=== PATIENT | male | born 1945 | race Hispanic/Latino ===

== ENCOUNTER 2018-01-12 09:50 | Day surgery (SDC) | payer MEDICARE, OTHER ==
[~2018-01-12] VITALS: Ht 175.3 cm; Wt 73.5 kg
[~2018-01-12 09:50] MED LIST: ASPIR-LOW81 MG PO; KLOR-CON M2020 MEQ PO; LIPITOR20 MG PO; METOPROLOL TART50 MG PO; OMEPRAZOLE20 MG PO; TORSEMIDE5 MG PO; VITAMIN D50000 UNI1 PO; ZESTRIL2.5 MG PO
--- NOTE | 2018-01-13 14:33 | OR ---
[facility] [place] [facility] [address] [facility], [place] [address] Signed DATE OF OPERATION: 01/12/2018 SURGEON: Tejal Lowe MD PREOPERATIVE DIAGNOSIS: Colon screening. POSTOPERATIVE DIAGNOSIS: Normal colon screening to cecum. PROCEDURE: Total colonoscopy to cecum. ANESTHESIA: Intravenous sedation, fentanyl 100 mcg and Versed 4 mg. INDICATION: This 72-year-old man is a patient of Dr. Delgado. He underwent colonoscopy in 2010, which was normal. He is here for surveillance colonoscopy. He has no family history of colon cancer and is symptom-free. He understands the risks of bleeding, infection, and perforation related to colonoscopy and wished to proceed. FINDINGS: The prep was excellent. Complete colonoscopy was undertaken of the cecum without question. There was no sign of polyps, diverticular formation, colitis, or cancer. DESCRIPTION OF PROCEDURE: The patient was brought to the endoscopy suite and placed in lateral decubitus position, given intravenous sedation to the point of slurred speech and nystagmus. Digital rectal examination was normal. The Olympus video colonoscope was passed in the rectum and manipulated throughout the colon ultimately intubating the cecum itself. The ileocecal valve was normal. Scope was withdrawn from that point. Examination throughout showed no sign of abnormality specifically no polyps, diverticular formation, colitis, or cancer. Retroflex view of the rectum was normal as well. The scope was removed. The patient was taken to recovery room in good condition. CONCLUDING DIAGNOSIS: Normal colon. Electronically Signed By: TEJAL LOWE MD 01/13/18 1433 PATIENT NAME: RADHA DEL ANGEL JR OPERATIVE REPORT DATE OF : 47 REPORT #: [id number] PHYSICIAN: TEJAL LOWE MD PCP: INGA DELGADO DO REPORT IS CONFIDENTIAL AND NOT TO BE RELEASED WITHOUT AUTHORIZATION [address] [place], [place] [address] Signed PLAN: Repeat colonoscopy in 10 years if clinically indicated at advanced age of 82 years. MD JOHN Funez/EBONI /[id number] cc: Dr. Delgado Copies: ~ Electronically Signed By: TEJAL LOWE MD 01/13/18 1433 PATIENT NAME: RADHA DEL ANGEL JR OPERATIVE REPORT DATE OF : 47 REPORT #: [id number] PHYSICIAN: TEJAL LOWE MD PCP: INGA DELGADO DO REPORT IS CONFIDENTIAL AND NOT TO BE RELEASED WITHOUT AUTHORIZATION
== END 2018-01-12 11:36 | disposition home or self-care (01) ==
LOC: OPS 09:50 → DS 09:50 → OPS 11:36 → DS 12:00
PROVIDERS: Surgery
PROC: 0DJD8ZZ Inspection of Lower Intestinal Tract, Via Natural or Artificial Opening Endoscopic (ICD-10-PCS; principal; 2018-01-12 12:00)
DX: Z12.11 Encounter for screening for malignant neoplasm of colon (principal); E78.5 Hyperlipidemia, unspecified; I10 Essential (primary) hypertension; I25.10 Atherosclerotic heart disease of native coronary artery without angina pectoris; L72.0 Epidermal cyst; Z87.442 Personal history of urinary calculi
CPT/HCPCS: G0121; 99153; G0500; J2250; J3010; J7120

== ENCOUNTER 2020-05-03 19:11 | Emergency (ER) | payer MEDICARE, OTHER ==
[~2020-05-03] VITALS: Ht 175.3 cm; Wt 76.2 kg
[~2020-05-03 19:11] MED LIST changes: +IBUPROFEN600 MG PO; +MAPAP325 MG PO; +OXYCODON-ACETA1 EAC2 PO
[2020-05-03] MEDS ORDERED: NORVASC2.5 MG PO (19:49)
[2020-05-03] MEDS ORDERED: ALDACTONE25 MG PO (19:49)
[2020-05-03] MEDS ORDERED: MAGNESIUM30 MG PO (19:50)
[2020-05-03] MEDS ORDERED: MAG-TAB SR84 MG PO (19:52)
[2020-05-03] MEDS ORDERED: CARVEDILOL25 MG PO (19:53)
[2020-05-03] MEDS ORDERED: ZESTRIL40 MG PO (19:53)
[2020-05-04] MEDS ORDERED: AUGMENTIN 875-1 EACH PO (00:20)
--- NOTE | 2020-05-04 17:10 | EKG ---
[facility] [address] [facility] [place] [address] Signed Sinus bradycardia with marked sinus arrhythmia Minimal voltage criteria for LVH, may be normal variant Inferior infarct (cited on or before 09-JAN-2018) Abnormal ECG When compared with ECG of 09-JAN-2018 11:13, T wave inversion less evident in Inferior leads Confirmed by ADEBAYO PASCUAL DO ([id number]) on 05/04/2020 5:10:02 PM Electronically Signed By: ADEBAYO PASCUAL DO 05/04/20 1710 PATIENT NAME: RADHA DEL ANGEL Electrocardiogram DATE OF : 47 PHYSICIAN: ADEBAYO PASCUAL DO REPORT #: [id number] REPORT IS CONFIDENTIAL AND NOT TO BE RELEASED WITHOUT AUTHORIZATION
== END 2020-05-04 00:30 | disposition home or self-care (01) ==
LOC: ED 19:11
DX: K57.32 Diverticulitis of large intestine without perforation or abscess without bleeding (principal); N32.9 Bladder disorder, unspecified; R07.9 Chest pain, unspecified; I10 Essential (primary) hypertension; Z87.891 Personal history of nicotine dependence; Z91.011 Allergy to milk products; Z79.899 Other long term (current) drug therapy; Z79.82 Long term (current) use of aspirin
CPT/HCPCS: 74177; 80053; 81001; 84484; 85025; 93005; 93010; 99285-25; J2270; J2405; J2543; J7040; Q9967

== ENCOUNTER 2020-09-28 05:30 | Day surgery (SDC) | payer MEDICARE, OTHER ==
[~2020-09-28] VITALS: Ht 175.3 cm; Wt 73.6 kg
[~2020-09-28 05:30] MED LIST changes: +ALDACTONE25 MG PO; +AUGMENTIN 875-1 EACH PO; +CARVEDILOL25 MG PO; +FLOMAX0.4 MG PO; +MAG6464 MG PO; +MAGNESIUM30 MG PO; +NORVASC2.5 MG PO; +ZESTRIL40 MG PO
[2020-09-28] MEDS ORDERED: TYLENOL EXTRA500 MG PO (05:57)
[2020-09-29] MEDS ORDERED: AMLODIPINE BESYL5 MG PO (08:32)
[2020-09-29] MEDS ORDERED: TAMSULOSIN HCL0.4 MG PO (08:41)
[2020-09-29] MEDS ORDERED: OFLOXACIN5 M1 OD (09:00)
[2020-09-29] MEDS ORDERED: CIPRO500 MG PO (10:41)
[2020-09-29] MEDS ORDERED: OXYCODONE HCL5 M1 PO (10:41)
--- NOTE | 2020-09-29 16:51 | PATH ---
[facility] [address] [place], [place] [address] Signed SPECIMEN(S): A PROSTATE CHIPS SPECIMEN SOURCE: A. PROSTATE CHIPS CLINICAL HISTORY: Pre: BPH with LUTS. Posterior: TURP. FINAL PATHOLOGIC DIAGNOSIS: Prostate chips, transurethral resection: - Nodular prostatic hyperplasia. NAL:vlg:KESHAVR MICROSCOPIC EXAMINATION: A Tri-CAP multi-plex stain (with appropriate staining controls) is performed on a employee's representative section and confirms a focus of adenosis, with patchy basal cells with p63 and HMWCK and very faint, rare P504S epithelial positivity. GROSS DESCRIPTION: The specimen, labeled "FY," and designated on the requisition "prostate chips," is received in formalin and consists of multiple fragments of pink-king, soft and rubbery tissue (7 gram, 5.5 x 4.0 x 1.5 cm in aggregate). The specimen is submitted entirely in cassettes (A1-A5). AC (under the direct supervision of a pathologist) The Gross Description was prepared using a voice recognition system. The report was reviewed for accuracy; however, sound-alike word errors, addition and/or deletions may occur. If there is any question about this report, please contact Client Services. ADDITIONAL NOTES: Immunohistochemical and/or in situ hybridization studies were performed on this case with the appropriate positive controls that react as expected. This test was developed and its performance characteristics determined by [facility]. It has not been cleared or approved by the U.S. Food and Drug Administration. The FDA has determined that such clearance or approval is not necessary. This test is used for clinical purposes. It should not be regarded as investigational or for research. [facility] is certified under the Clinical Laboratory Improvement Amendments of 1988 (CLIA) as qualified to perform high complexity clinical PATIENT NAME: RADHA DEL ANGEL JR PATHOLOGY DATE OF : 47 REPORT #: [id number] PHYSICIAN: SAMARA PATHOLOGY PCP: LUCINDA GUTIÉRREZ MD REPORT IS CONFIDENTIAL AND NOT TO BE RELEASED WITHOUT AUTHORIZATION [facility] [address] [place], [place] [address] Signed laboratory testing. This assay has not been validated for specimens that have been decalcified. PERFORMING LABORATORY: The technical component was performed by [facility], [address] [place] [id number] (Stereotyper Helper: Sparkle Hawk MD; CLIA# [id number]). Professional interpretation was performed by [employer] [facility], [address] [address] (CLIA# [id number]). Diagnostician: Mariel Marion MD Pathologist Electronically Signed 09/29/2020 Copies: ~ PATIENT NAME: RADHA DEL ANGEL PATHOLOGY DATE OF : 47 REPORT #: [id number] PHYSICIAN: SAMARA PATHOLOGY PCP: LUCINDA GUTIÉRREZ MD REPORT IS CONFIDENTIAL AND NOT TO BE RELEASED WITHOUT AUTHORIZATION
--- NOTE | 2020-10-01 14:19 | OR ---
[facility] [address] [place], [place] [address] Signed DATE OF OPERATION: 09/28/2020 SURGEON: Earl Sheppard MD PREOPERATIVE DIAGNOSES: 1. 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 2. Regrowth of prostate tissue, status post transurethral resection of the prostate. 3. Benign prostatic hyperplasia with lower urinary tract symptoms. POSTOPERATIVE DIAGNOSES: 1. 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 2. Regrowth of prostate tissue, status post transurethral resection of the prostate. 3. Benign prostatic hyperplasia with lower urinary tract symptoms. NAMES OF PROCEDURES: 1. Diagnostic cystourethroscopy. 2. Urethral dilation using Radha dilators from 10-Nicaraguan to 20-Nicaraguan. 3. Transurethral resection of prostate. ANESTHESIA: General. ESTIMATED BLOOD LOSS: 25 mL. COMPLICATIONS: None. SPECIMENS: 1. Bladder stone sent to the lab for stone analysis. 2. Prostate chips sent to the pathology for evaluation. DRAINS: A 22-Nicaraguan three-way Gillette catheter, connected to continuous bladder irrigation. INDICATIONS FOR PROCEDURE: Mitzi is a very pleasant 75-year-old gentleman with a longstanding history of benign prostatic hyperplasia with lower urinary tract symptoms. He is well known to me and has been experiencing a weak force of stream for a while now, despite having undergone transurethral resection of the prostate in the past. He recently underwent Electronically Signed By: EARL SHEPPARD MD 10/01/20 1419 PATIENT NAME: DEL ANGELRADHA RUGGIERO JR OPERATIVE REPORT DATE OF : 47 REPORT #: [id number] PHYSICIAN: EARL SHEPPARD MD PCP: LUCINDA GUTIÉRREZ MD REPORT IS CONFIDENTIAL AND NOT TO BE RELEASED WITHOUT AUTHORIZATION [facility] [address] [place], [place] [address] Signed cystoscopy, which did reveal a short however dense stricture located in the proximal portion of the pendulous urethra. This required dilation before he underwent a formal diagnostic cystoscopy. Once in the bladder, I was able to appreciate significant regrowth of his prostate. I was able to visualize very large bulbs of adenomatous tissue present within and otherwise patent TUR defect. After discussion of the risks and benefits, the patient elected to undergo repeat TURP. He does understand that his stricture will require repeat dilation prior to resection of the prostate. OPERATIVE FINDINGS: 1. Ureteroscopy reveals a high caliber yet short stricture present within the pendulous urethra. This stricture was dilated using Radha dilators from 10-Nicaraguan to 20-Nicaraguan without difficulty. The stricture does not at this time seem to be of any significant length as the dilation was performed without difficulty. 2. Diagnostic cystoscopy reveals no evidence of any suspicious masses or lesions. There is a small 3 mm stone present within the bladder. The stone was extracted and sent to the lab for stone analysis. Otherwise, there were no bladder lesions. Bilateral ureteral orifices are in their normal anatomic location. 3. Ureteroscopy reveals a fairly wide open TUR defect that is patent up to the level of the verumontanum. However, there are three large bulbous collections of tissue. These appeared to ball-valving his TUR defect. These well-circumscribed areas of tissue were resected using a 24-Nicaraguan bipolar loop without difficulty. 4. At the end of the procedure, a 22-Nicaraguan three-way Gillette catheter was inserted into the patient's bladder and connected to continuous bladder irrigation. DESCRIPTION OF PROCEDURE: After informed consent was obtained, the patient was taken back to the operating room. He was transferred from the [facility] to the operating room table, where general anesthesia was induced. He was placed in dorsal lithotomy position. His genitalia prepped and draped in a standard sterile fashion. Urethroscopy was performed using a 30-degree lens. His pendulous stricture was immediately noted and I was able to easily pass a Sensor wire through the stricture into the patient's bladder. Over the wire, I dilated the pendulous urethral stricture from 10-Nicaraguan to 20-Nicaraguan without difficulty. Once dilation was complete, I was able to pass a cystoscope into the patient's bladder using a 22-Nicaraguan sheath. A thorough diagnostic cystoscopy was performed. The cystoscope was then removed. The patient's fossa navicularis was dilated from 18-Nicaraguan to 28-Nicaraguan without difficulty. I also injected 60 mL of lube into the patient's urethra prior to placing the 26-Nicaraguan sheath. The 26-Nicaraguan sheath was placed into the patient's urethra without any significant difficulty using the visual obturator. The visual obturator was then removed and replaced with a resectoscope. The bulbous tissue present within the patient's prostatic urethra was then resected using a 24-Nicaraguan loop with bipolar electrocautery. The resection was performed without any difficulty and all three areas of tissue were successfully removed. Hemostasis was achieved using the Electronically Signed By: EARL SHEPPARD MD 10/01/20 1419 PATIENT NAME: RADHA DEL ANGEL JR OPERATIVE REPORT DATE OF : 47 REPORT #: [id number] PHYSICIAN: EARL SHEPPARD MD PCP: LUCINDA GUTIÉRREZ MD REPORT IS CONFIDENTIAL AND NOT TO BE RELEASED WITHOUT AUTHORIZATION [address] [place], [place] [address] Signed bipolar loop. The patient's bladder was thoroughly irrigated of prostate chips using a Marcello syringe. Repeat cystoscopy revealed that both the small bladder stone and all the prostate chips had been successfully extracted from the patient's bladder. Once I was satisfied that the TUR defect had been completely cleared of any residual adenoma, I removed the resectoscope and inserted a 22-Nicaraguan three-way Gillette catheter into the patient's bladder without difficulty. A 30 mL of water was placed into the Gillette balloon. The Gillette catheter was then manually irrigated. The procedure was then terminated. I then performed a digital rectal examination which revealed no evidence of masses, however, did reveal a rather diffusely enlarged prostate gland measuring approximately 70 g. The procedure was then terminated. The patient tolerated the procedure well without any complication. He will now be transferred to the postanesthesia care unit in stable condition. DISPOSITION: I will discuss the details of today's procedure later today when I see the patient this evening. The plan is for him to be discharged to home tomorrow morning once he is completely weaned off his continuous bladder irrigation. I anticipate that this will happen quite easily. He will be sent home with Cipro 500 mg p.o. b.i.d. for a total of 7 days, along with oxycodone 5 mg one tablet p.o. q.6-8 hours p.r.n. pain dispensed #15. He will be scheduled to return to clinic in 3 days to undergo a voiding trial. MD ALEX Tena/EBONI /[id number] Copies: ~ Electronically Signed By: EARL SHEPPARD MD 10/01/20 1419 PATIENT NAME: RADHA DEL ANGEL OPERATIVE REPORT DATE OF : 47 REPORT #: [id number] PHYSICIAN: EARL SHEPPARD MD PCP: LUCINDA GUTIÉRREZ MD REPORT IS CONFIDENTIAL AND NOT TO BE RELEASED WITHOUT AUTHORIZATION
== END 2020-09-29 12:30 | disposition home or self-care (01) ==
LOC: DS 05:30 → MS 09:55 → DS 09-29 12:30
PROVIDERS: ATTEND Urology
PROC: 0VB08ZZ Excision of Prostate, Via Natural or Artificial Opening Endoscopic (ICD-10-PCS; principal; 2020-09-28 06:45)
DX: N40.1 Benign prostatic hyperplasia with lower urinary tract symptoms (principal); N99.111 Postprocedural bulbous urethral stricture, male; N13.8 Other obstructive and reflux uropathy; N21.0 Calculus in bladder; I25.10 Atherosclerotic heart disease of native coronary artery without angina pectoris; I25.82 Chronic total occlusion of coronary artery; Z20.822 Contact with and (suspected) exposure to COVID-19; I10 Essential (primary) hypertension; E78.5 Hyperlipidemia, unspecified; Z79.82 Long term (current) use of aspirin; Z87.891 Personal history of nicotine dependence; Z95.5 Presence of coronary angioplasty implant and graft
CPT/HCPCS: 00914; 88305; 88344; C1769; J0690; J0696; J1160; J2704; J3010; J7121; U0003

== ENCOUNTER 2023-03-23 13:57 | Inpatient (IN) | payer MEDICARE, OTHER ==
[~2023-03-23] VITALS: Ht 175.3 cm; Wt 70.8 kg
[~2023-03-23 13:57] MED LIST changes: +AMLODIPINE BESYL5 MG PO; +CIPRO500 MG PO; +OFLOXACIN5 M1 OD; +OXYCODONE HCL5 M1 PO; +TAMSULOSIN HCL0.4 MG PO; +TYLENOL EXTRA500 MG PO
[2023-03-23 16:11] LABS: BASOPHILS 0.8 % (0-2); EOSINOPHILS 0.3 % (0-6); HEMATOCRIT 38.9 % (35.0-50.0); HEMOGLOBIN 12.9 g/dL (12.0-18.0); MCH 30.3 (27-36); MCHC 33.1 g/dl (30-36); MCV 91.4 fl (81-99); MONOCYTES 10.8 % (0-12); NEUTROPHILS 71.1 % (39-80); PLATELET COUNT 216 K/uL (140-440); RBC 4.26 M/ul (4.3-5.7); RDW 13.5 (10.5-15.0)
[2023-03-23 16:21] LABS: ALBUMIN/GLOBULIN RATIO 1.14 (1.1-2.4); ANION GAP 13.3 (7-21); BILIRUBIN, TOTAL 0.7 ng/dL (0.2-1.0); BUN/CREATININE RATIO 19.14 (6.0-28.6); CALCIUM 9.3 mg/dL (8.5-10.1); CREATININE, SERUM 0.94 mg/dL (0.70-1.30); POTASSIUM 3.3 mmol/L (3.5-5.1); PROTEIN, TOTAL 7.5 g/dL (6.4-8.2)
--- NOTE | 2023-03-23 17:25 | NUR ---
recieved report from nurse kaur. pt was ambulated from er and transferred with assistance into the [facility] bed.
[2023-03-23 17:30] VITALS: BP 143/79
--- NOTE | 2023-03-23 18:30 | NUR ---
pt vitals and assessments complete. pt is A+O. ICEPACK APPLIED TO LEFT ANKLE PER DR ORDERS. INCENTIVE SPIROMETER USE STARTED PER DR ORDERS, PT LEG ELEVATED. PT AWARE OF SURGERY TOMORROW. NPO AT MIDNIGHT. PT REQUESTED GINGERALE. NO OTHER CARES NEEDED OR REQUESTED AT THIS TIME CALL LIGHT WITHIN REACH
--- NOTE | 2023-03-23 19:05 | NUR ---
REPORT RECIEVED FROM REGINE WEBB. BOARD UPDATED. pt RESTING IN THE BED. LLE ELEVATED. pt DENIES ANY NEEDS AT THIS TIME.
--- NOTE | 2023-03-23 21:00 | NUR ---
pt REQUESTED TO USE THE BR. THIS RN SUGGESTED THE pt BE PLACED ON THE BED PRASAD. pt AGREED TO TRY BUT THOUGHT HE MIGHT NOT BE ABLE TO GO. pt ROLLED FROM SIDE TO SIDE WITH MINIMAL PAIN IN LLE. pt COVERED AND GIVEN CALL LIGHT FOR WHEN HE WAS FINISHED.
[2023-03-23 21:52] VITALS: BP 145/60
--- NOTE | 2023-03-23 22:00 | NUR ---
pt TAKENT OFF BED PRASAD AT 2119. ASSESSMENT AND VITAL SIGNS DONE. pt BOOT REMOVED AND HEEL PROTECTORS PLACED ON pt. ICE PACK PLACED ON LLE. pt C/O 05/13 PAIN. PRN PAIN MEDICATION ADMINISTERED, SEE MAY. LLE ELEVATED ON TWO PILLOWS. LLE, CMS INTACT, PEDAL PULSES FAINT AND THREADY. L ANCKLE AND FOOT 1+ EDEMA, WARM TO TOUCH, PURPLE IN COLOR. pt DENIES ANY OTHER NEEDS AT THIS TIME.
[2023-03-24] VITALS (8 sets, daily range): BP systolic 114–152; BP diastolic 65–78
--- NOTE | 2023-03-24 00:40 | NUR ---
pt RESTING IN BED. ICE PACK REMOVED. LLE STILL ELEVATED ON TWO PILLOWS. HEEL PROTECTORS ON. WATER TAKEN AWAY. pt DENIES PAIN AT THIS TIME. CALL LIGHT WITHIN REACH.
--- NOTE | 2023-03-24 02:05 | NUR ---
assessment done. LLE elevated on two pillows. vital signs and I&O's done. pt denies any pain at this time. heel protectors on. Ice pack placed on LLE. pt denies any needs at this time. call light within reach.
--- NOTE | 2023-03-24 02:39 | NUR ---
ICE PACE REMOVED. WARM BLANKET PROVIDED. BLANKETS ADJUSTED. CALL LIGHT WITHIN REACH. pt SONG Bills THIS TIME.
--- NOTE | 2023-03-24 05:00 | NUR ---
THIS RN AND SHIRIN RN WENT IN FOR ROUNDING AND REPOSITIONING OF THE pt. FOOT CRADEL PLACED ON END OF BED TO KEEP BLANKETS OFF FOOT. ICE PLACED ON FOOT. WARM BLANKET PROVIDED. pt COMPLAINS OF 4/10 PAIN. PRN PAIN MEDICATION RE-ORDERED ON THE MAY WILL ADMINISTER WHEN VERIFIED. pt STATES HE IS COMFORTABLE AT THIS TIME. LLE ELEVATED. HEEL PROTECTORS ON. pt DENIES ANY OTHER NEEDS AT THIS TIME. CALL LIGHT WITHIN REACH.
--- NOTE | 2023-03-24 06:02 | NUR ---
pt C/O 07/13 PAIN. PRN PAIN MEDICATION ADMINISTERED. SIP OF WATER ONLY. PRE SUGERY WIPE DOWN DONE. pt DENIES ANY OTHER NEEDS AT THIS TIME. CALL LIGHT WITHIN REACH.
--- NOTE | 2023-03-24 06:15 | NUR ---
UPDATED ABOUT pt FLUIDS AND PRN PAIN MEDICATIONS. TELEPHONE ORDERS RECIEVED FOR IVF AND PRN PAIN MEDICATION.
--- NOTE | 2023-03-24 08:45 | NUR ---
Patient awake in bed, no acute distress, a&ox4. Patient reports tolerable pain at this time. LLE has large medix heel protector in place, pillows in use for elvation. Right foot has small heel protector in place. CMS intact. Fracture boot noted on side table. Per report, patient is ready for surgery.
--- NOTE | 2023-03-24 08:55 | NUR ---
Surgery dept called, they will be here shortly to get patient.
--- NOTE | 2023-03-24 11:01 | NUR ---
03/24/23 1101 [place] 1011 PT ARRIVED TO PACU ON RA AND RESP EVEN AND UNLABORED. PT ASLEEP AND VSS. LEFT LEG PLACED ON PILLOWS FOR ELEVATION. PT SITTING IN HIGH FOLWERS. 1031 PT WOKE TO TACTILE STIMULI AND REORIENTED TO PACU. PT DENIES PAIN AND NAUSEA. PT REPORTS "SOME" DECREASED FEELING IN LEFT FOOT AND EDUCATION GIVEN ON BLOCK. PLAN OF CARE DISCUSSED. 1040 PT READY FOR TRANSFER. PT CONTINUES TO DENY CONCERNS. 1045 PT RETURNED TO ROOM 119 AND REPORT GIVEN TO GRANULATING MACHINE OPERATOR AND MED-SURG CHARGE. BED PLUGGED IN AND CALL LIGHT WITHIN REACH. PT DAUGHTER AT BEDSIDE. HEEL PROTECTION DISCUSSED IN REPORT. ALL QUESTIONS ANSWERED.
--- NOTE | 2023-03-24 11:15 | NUR ---
Patient back from surgery, a&ox4, no acute distress. External fixator in place to LLE. LLE elvated on pillows, heel does not touch pillow. Gauze dressing cdi to LLE, cms intact. Bed alarm in place. IV patent, fluids infusing per provider order. Vital signs are stable. Personal supplies and call light within reach.
--- NOTE | 2023-03-24 11:49 | NUR ---
UR Review: [facility] review 03/24/2023 - patient meets inpatient criteria - guideline: Ankle Fracture, Closed, Open Reduction, Internal Fixator (ORIF). Procedure performed in OR - Closed reduction left ankle with external fixator. Patient does not me GL day 1, exception entered for recent surgery, unable to determine if patient will meet PO guidelines and PT evaluation/ambulation for next level of care.
--- NOTE | 2023-03-24 13:09 | NUR ---
WORKING WITH PT. WILL RETURN TO ASSESS PATIENT THIS AFTERNOON.
--- NOTE | 2023-03-24 14:01 | NUR ---
Patient in bed watching tv, no distress. Patient's dressing/external fixator unchanged, cms intact, pillows remain in place. Patient denies pain at this time to LLE. No current needs, personal supplies and call light within reach.
--- NOTE | 2023-03-24 14:06 | NUR ---
PATIENT ALERT AND ORIENTED UP IN BED, DAUGHTER AT BEDSIDE. DEMOGRAPHICS VERIFIED WITH PATIENT. STATES HE LIVES IN DOUBLE [place]IDE [place], 5 STEPS TO GET IN AND ONE SMALL STEP IN DININGROOM. LIVES ALONE. NO DME. NORMALLY DRIVES. SOME FINANCIAL BURDEN, BUT DAUGHTER HAS BEEN ASSISTING. WOULD LIKE A WALKER. DISCUSSED OUTPATIENT PT VS. SNF WITH PATIENT AND DAUGHTER. DAUGHTER AND PATIENT THINK SNF IS A GOOD IDEA TO MANAGE EXTERNAL FIXATOR AND WORK WITH PT/OT TO ENSURE SAFETY AT HOME. PREFER [facility]. CHART FAXED FOR REFERRAL TO [facility].
[2023-03-24] MEDS ORDERED: IRBESARTAN300 MG PO ×2 (15:22)
[2023-03-24] MEDS ORDERED: CARVEDILOL12.5 MG PO ×2 (15:23)
[2023-03-24] MEDS ORDERED: ATORVASTATIN CA20 MG PO ×2 (15:23)
[2023-03-24] MEDS ORDERED: SPIRONOLACTONE25 MG PO ×2 (15:24)
--- NOTE | 2023-03-24 15:45 | NUR ---
Patient awake visiting with friends. No current needs at this time. LLE unchanged, external fixation intact, gauze cdi. LLE remains elvated, cms intact. No current needs, personal supplies and call light within reach.
[2023-03-24] MEDS ORDERED: BAYER CHEWABLE81 MG PO ×2 (16:25)
[2023-03-24] MEDS ORDERED: OMEPRAZOLE20 MG PO ×2 (16:25)
[2023-03-24] MEDS ORDERED: OXYBUTYNIN CHLOR5 M1 PO ×2 (16:26)
[2023-03-24] MEDS ORDERED: NICORETTE2 M1 BUCCAL ×2 (16:27)
--- NOTE | 2023-03-24 16:35 | NUR ---
MED REC COMPLETE
--- NOTE | 2023-03-24 19:05 | NUR ---
REPORT RECIEVED FROM GOYO WEINER. pt RESTING IN THE BED. A&O X4. pt LLE ELEVATED ON 2 PILLOWS WITH HEEL FLOATING OFF BED. FOOT HALO ON END OF BED WITH BLANKET OFF OF FOOT. HEEL MEDIX ON RIGHT FOOT. LLE DRESSING CDI. ICE PACK IN PLACE. pt DENIES ANY PAIN OR NEEDS AT THIS TIME. CALL LIGHT WITHIN REACH. NO OTHER NEEDS AT THIS TIME.
--- NOTE | 2023-03-24 20:40 | NUR ---
pt RESTING IN THE BED. LLE ELEVATED ON PILLOWS. LEFT HEEL FLOATED OFF BED. IV FLUSHED. IVF INFUSING, PER ORDER, WNL. pt STATES LLE IS STILL NUMB. RLE HAS HEEL MATRIX ON. LLE DRESSING CDI. HALO STILL ON FOOT OF BED, BLANKETS ELEVATED OFF FOOT. LLE CMS INTACT. PEDAL PULSES INTACT. LLE WARM AND PINK, NO SWELLING NOTED. pt A&O X4. pt DENIES ANY OTHER NEEDS AT THIS TIME. CALL LIGHT WITHIN REACH.
--- NOTE | 2023-03-24 23:00 | NUR ---
IV ABX INFUSING, SEE MAR. pt DENIES PAIN AT THIS TIME. pt STATES HIS LLE IS STILL NUMB. LLE DRESSING CDI. HEEL FLOATING OFF BED. LLE ELEVATED ON 2 PILLOWS. RIGHT FOOT IN HEEL PROTECTOR. SCD ON RLE. pt DENIES ANY OTHER NEEDS AT THIS TIME. CALL LIGHT WITHIN REACH.
--- NOTE | 2023-03-25 00:05 | NUR ---
pt FLOATED WITH PILLOWS UNDER BOTH HIPS. PILLOWS UNDER LLE HEEL FLOATED. CPOX ON. SCD ON RIGHT LEG. HEEL PROTECTOR ON. LLE DRESSING CDI. pt DENIES PAIN AT THIS TIME. CALL LIGHT WITHIN REACH.
[2023-03-25 01:56] VITALS: BP 132/75
--- NOTE | 2023-03-25 02:05 | NUR ---
ASSESSMENT AND VITAL SIGNS DONE. pt DENIES PAIN, STATES HIS LLE IS STILL NUMB FROM THE NURVE BLOCK. LLE ELEVATED ON PILLOWS, HEEL FLOATED OFF THE BED. LLE DRESSING CDI. SCD ON RIGHT LEG. HEEL PROTECTOR ON RLE. VSS. pt A&O X4. pt DENIES ANY OTHER NEEDS AT THIS TIME. CALL LIGHT WITHIN REACH. LLE CMS INTACT. PEDAL PULSES FELT.
--- NOTE | 2023-03-25 04:15 | NUR ---
pt RESTING IN THE BED. pt LLE ELEVATED ON PILLOWS. LEFT HEEL FLOATING. CMS INTACT, PEDAL PULSES PRESENT. 1+ EDEMA ON LLE. LLE PINK AND WARM. LLE DRESSING CDI. RIGHT LLE HAS HEEL PROTECTOR AND SCD ON. pt DENIES ANY PAIN AT THIS TIME, STATE HIS LLE IS STILL NUMB. CALL LIGHT WITHIN REACH.
[2023-03-25 05:37] VITALS: BP 133/64
[2023-03-25 05:45] LABS: BASOPHILS 0.1 % (0-2); HEMATOCRIT 32.7 % (35.0-50.0); HEMOGLOBIN 10.9 g/dL (12.0-18.0); LYMPHOCYTES 10.6 % (24-44); MCH 30.1 (27-36); MCHC 33.2 g/dl (30-36); MCV 90.8 fl (81-99); MONOCYTES 8.7 % (0-12); NEUTROPHILS 80.6 % (39-80); PLATELET COUNT 175 K/uL (140-440); RDW 13.3 (10.5-15.0)
[2023-03-25 05:49] LABS: ANION GAP 11.1 (7-21); BUN/CREATININE RATIO 16.86 (6.0-28.6); CREATININE, SERUM 0.83 mg/dL (0.70-1.30); POTASSIUM 4.1 mmol/L (3.5-5.1)
--- NOTE | 2023-03-25 08:58 | NUR ---
Patient awake, alert and oriented x4. Patient denies pain to LLE. LLE remains elveated on pillows, heel not touching anything. CMS intact to LLE, external fixation in place. Gauze surrounding external fixation has small amount of sarosang drainage noted. Patient reports numbness to LLE. No current needs, personal supplies and call light within reach. Bed alarm intact.
--- NOTE | 2023-03-25 09:15 | EKG ---
[facility] [address] [facility] [place] [address] Signed Sinus rhythm with occasional premature ventricular complexes Possible Inferior infarct (cited on or before 09-JAN-2018) Abnormal ECG When compared with ECG of 03-MAY-2020 20:56, premature ventricular complexes are now present Confirmed by NADEGE OMER MD ([id number]) on 03/25/2023 9:14:50 AM Electronically Signed By: NADEGE OMER 03/25/23 0915 PATIENT NAME: GRETCHEN DEL ANGELKIERRA ESTRADA Electrocardiogram DATE OF : 47 PHYSICIAN: NADEGE OMER REPORT #: [id number] REPORT IS CONFIDENTIAL AND NOT TO BE RELEASED WITHOUT AUTHORIZATION
[2023-03-25 10:09] VITALS: BP 148/70
--- NOTE | 2023-03-25 10:28 | OR ---
[facility] [address], [place] [address] Signed DATE OF OPERATION: 03/24/2023 SURGEON: Praveen Up MD PREOPERATIVE DIAGNOSIS: Unstable left ankle fracture with significant swelling and skin compromise. POSTOPERATIVE DIAGNOSIS: Unstable left ankle fracture with significant swelling and skin compromise. PROCEDURE PERFORMED: Closed reduction and external fixation, left ankle. FIELD BROOMER: None. ANESTHESIA: General. BLOOD LOSS: Minimal. TOURNIQUET TIME: Zero. BRIEF HISTORY: Radha is a 77-year-old gentleman, who suffered a ground level fall two days ago. He walked on the ankle feeling very unstable and presented to the ER where radiographs showed a displaced unstable bimalleolar ankle fracture. Risks and benefits of operative treatment were discussed with him and he elected to proceed. DESCRIPTION OF PROCEDURE: Once consent was obtained, he was taken to the operating room. It should be noted that he came to day surgery with his fracture boot removed and his foot essentially . This created some skin issues on both medial and lateral sides where the bone fragments were pushing on the skin and created almost open fractures. He was taken to the operating room, placed on the operating room bed. After adequate anesthesia was established, the leg was prepped and draped in a standard sterile fashion. The 1st two pins were placed in the tibia on the proximal and medial side through separate stab incisions, the clamp was then attached to them. The 3rd pin was placed in the talar Electronically Signed By: PRAVEEN UP MD 03/25/23 1028 PATIENT NAME: RADHA DEL ANGEL JR OPERATIVE REPORT DATE OF : 47 REPORT #: [id number] PHYSICIAN: PRAVEEN UP MD PCP: LUCINDA GUTIÉRREZ MD REPORT IS CONFIDENTIAL AND NOT TO BE RELEASED WITHOUT AUTHORIZATION [facility] [address] [place] [id number] Signed neck and the 4th pin in the calcaneus just below where the significant skin blistering was. These pins were also attached to a clamp and two bars were placed. Fracture was then placed in a reduced position and the bars were tightened to the pin clamps. All attachments were tightened sufficiently. Final radiographs showed good reduction and alignment. The four pins were then dressed with Allevyn dressing and gauze. An Allevyn was placed on the lateral side of the ankle where the skin breakdown had occurred as well. He was then awakened, taken to the recovery room in satisfactory condition. All sponge, needle, and instrument counts were correct. Praveen Up MD BA/DOROTHYL /[id number] Copies: ~ Electronically Signed By: PRAVEEN UP MD 03/25/23 1028 PATIENT NAME: RADHA DEL ANGEL JR OPERATIVE REPORT DATE OF : 47 REPORT #: [id number] PHYSICIAN: PRAVEEN UP MD PCP: LUCINDA GUTIÉRREZ MD REPORT IS CONFIDENTIAL AND NOT TO BE RELEASED WITHOUT AUTHORIZATION
--- NOTE | 2023-03-25 11:11 | NUR ---
Dr. Up aware of bleEding surrounding external fixation sites-Verbal order received to reinforce area with gauze wrap.
[2023-03-25 13:05] VITALS: BP 140/63
--- NOTE | 2023-03-25 15:15 | NUR ---
Patient up in chair watching tv, no distress. Patient denies pain to LLE. LLE remains elvevated, dressing/external fixation unchanged, cms intact. Personal supplies and call light within reach.
--- NOTE | 2023-03-25 16:00 | NUR ---
External fixator has a small amount of new allen red bleeding noted around upper and lower instertion sites. Gauze dressing changed to upper dressing. LLE remains elevated, cms intact. Patient reports he is doing well this evening, pain is well controlled. Call light within reach.
[2023-03-25 18:50] VITALS: BP 148/72
--- NOTE | 2023-03-25 19:05 | NUR ---
REPORT RECIEVED FROM GOYO WEINER. pt RESTING IN THE BED. pt DENIES PAIN AT THIS TIME. pt BANDAGES MODERATELY SATURATED WITH BLOOD. DAY SHIFT RN STATES DR. GONZÁLES IS AWARE. LLE IS ELEVATED ON PILLOWS, HEEL FLOATED. RLE SCD ON, HEEL PROTECTOR ON. pt DENIES ANY OTHER NEEDS AT THIS TIME. CALL LIGHT WITHIN REACH.
--- NOTE | 2023-03-25 20:10 | NUR ---
IN ROOM WITH PRIMARY RN OJSEFINA TO COLLECT VS AND I&O'S. ROOM TIDIED AND pt HAS CALL LIGHT IN REACH, pt LEFT RESTING IN BED WITH PRIMARY RN IN ROOM.
[2023-03-25 20:16] VITALS: BP 128/63
--- NOTE | 2023-03-25 20:20 | NUR ---
ASSESSMENT AND VITAL SIGNS DONE. LLE DRESSING MODERATELY SATURATED. LLE ELEVATED ON PILLOW. HEEL ELEVATED. RLE SCD ON, HEEL PROTECTOR ON. IV ASSESSED, WNL. pt DENIES ANY PAIN AT THIS TIME. CALL LIGHT WITHIN REACH. SCHEDULED MEDICATION ADMINISTERED, SEE MAY.
--- NOTE | 2023-03-25 23:00 | NUR ---
KERLIX DRESSING CHANGED ON pt LLE. TWO DRAIN GAUZES PLACED AROUND MECHANISM'S BARS, WITH KERLIX WRAPPED AROUND THE PROXIMAL BARS OF THE MECHANISM AND THE pt LEG. pt TOLERATED WELL. pt STILL DENIES PAIN. DRAINAGE WILL BE MONITORED THROUGHOUT THE NIGHT. LLE ELEVATED ON PILLOWS, HEEL FLOATING. RLE SCD ON AND HEEL PROTECTOR ON. CALL LIGHT WITHIN REACH.
--- NOTE | 2023-03-25 23:30 | NUR ---
pt CALLED C/O 05/13 PAIN. PRN PAIN MEDICATION ADMNISTERED. pt STATES HE CAN FEEL HIS LEG AGAIN AND BEGAN TO MOVE IT. pt DENIES ANY OTHER NEEDS AT THIS TIME. CALL LIGHT WITHIN REACH.
--- NOTE | 2023-03-26 01:23 | NUR ---
pt CALLED, C/O 08/13 PAIN. PRN PAIN MEDICATION ADMINISTERED, SEE MAR. LLE ELEVATED ON TWO PILLOWS, HEEL FLOATED. RLE SCD ON AND HEEL PROTECTOR ON. WATER REFRESHED. pt DENIES ANY OTHER NEEDS AT THIS TIME. CALL LIGHT WITHIN REACH.
--- NOTE | 2023-03-26 02:12 | NUR ---
pt RESTING IN THE BED. pt STATES HIS PAIN IS GETTING BETTER AT THIS TIME. CALL LIGHT WITHIN REACH.
--- NOTE | 2023-03-26 04:12 | NUR ---
pt SITTING IN THE BED. O2 SATURATION AT 94% ON 1LNC. pt DENIES ANY NEEDS AT THIS TIME. CALL LIGHT WITHIN REACH.
--- NOTE | 2023-03-26 04:15 | NUR ---
pt RESTING IN THE BED WITH EYES CLOSED. RR EVEN AND UNLABORED. NO S/SX OF OBVIOUS DISTRESS. CALL LIGHT WITHIN REACH.
[2023-03-26 05:35] VITALS: BP 159/86
--- NOTE | 2023-03-26 06:00 | NUR ---
pt STATES HIS PAIN IS TOLERABLE AT THIS TIME. SCANT [place] OF DRAINAGE ON LLE DRESSING KERLIX DRESSING. LLE ON PILLOWS, HEEL FLOATED. RLE HEEL PROTECTOR ON AND SCD ON. VSS. pt DENIES ANY OTHER NEEDS AT THIS TIME.
--- NOTE | 2023-03-26 07:28 | NUR ---
REPORT FROM REGINE ROCHA.
--- NOTE | 2023-03-26 08:17 | NUR ---
MORNING ASSESSMENT IS COMPLETE. MORNING MEDICATIONS GIVEN. PATIENT RATES LEFT LEG PAIN 2/10 AND DENIES NEEDS FOR PAIN MEDICATIONS AT THIS TIME. PATIENT WOULD LIKE TO WASH UP AND SHAVE TODAY.
--- NOTE | 2023-03-26 09:33 | NUR ---
PATIENT UP TO BATHROOM FOR LARGE BM. PATIENT IS SBA WITH FWW AND IS STEADY ON HIS FEET. PATIENT GIVEN BED BATH, SHAMPOO, AND IS SET UP TO SHAVE SELF. LEFT LEG IS ELEVATED. LINENS FRESHENED, NEW GOWN AND CHUX TO BED. PATIENT CONTINUES TO DENY NEED FOR PAIN MEDICATIONS.
[2023-03-26 09:52] VITALS: BP 137/75
--- NOTE | 2023-03-26 09:58 | NUR ---
VITALS, I/O COMPLETE. DR. GONZÁLES IN TO SEE PATIENT.
--- NOTE | 2023-03-26 10:31 | NUR ---
PATIENT GIVEN PO PROTONIX. PATIENT REPORTS LEFT LOWER LEG PAIN IS INCREASING TO 7/10. IV TORADOL GIVEN. ICE PACKS TO LLE.
--- NOTE | 2023-03-26 11:08 | NUR ---
PATIENT REPORTS THAT PAIN IS DECREASED, 5/10, BUT DOES ENDORSE THAT HE IS HAVE PAIN THAT COMES AND GOES. PT INDICATED THAT THIS WAS LIKELY NERVE PAIN. PLAN IS FOR PATIENT TO WORK ON STAIRS WITH PT. ICE PACKS ARE OFF AT THIS TIME.
--- NOTE | 2023-03-26 11:14 | NUR ---
PATIENT IS AMBULATING IN HALLWAY TO PT ROOM WITH SBA FWW AND PT.
--- NOTE | 2023-03-26 11:29 | NUR ---
PATIENT IS SALINE LOCKED. PENDING RT O2 QUALIFIER TODAY.
[2023-03-26 14:34] VITALS: BP 142/68
--- NOTE | 2023-03-26 16:50 | NUR ---
PATIENT IS RESTING IN BED, RIGHT LOWER LEG IS ELEVATED ON 3 PILLOWS. DRAINAGE AROUND EXTERNAL FIXATER HAS NOT CHANGED THROUGHOUT THE DAY. PATIENT CONTINUES TO DENY ANY PAIN.
[2023-03-26 17:13] VITALS: BP 146/71
--- NOTE | 2023-03-26 19:15 | NUR ---
REPORT RECEIVED FROM REGINE URBAN. pt RESTING IN BED, LEG ELEVATED ON PILLOW. SMALL AMT DRAINAGE ON GAUZE AT UPPER PIN SITE. pt DENIES NEEDS FOR PRN PAIN MEDICATION AT THIS TIME. CALL LIGHT WITHIN REACH.
--- NOTE | 2023-03-26 21:50 | NUR ---
CHECKED ON pt. EATING FOOD BROUGHT IN BY DAUGHTER, FORK PROVIDED. REQUSTING RN RETURN WHEN DONE EATING FOR MEDICATIONS, VS. CALL LIGHT IN REACH.
[2023-03-26 22:43] VITALS: BP 154/80
--- NOTE | 2023-03-26 23:20 | NUR ---
CALL LIGHT ANSWERED, 1PA WITH FWW TO RESTROOM FOR BM AND UNMEASURED VOID. pt USES CALL LIGHT WHEN FINISHED. BACK TO BED, NON-WEIGHT BEARING. pt TOLERATES WELL. RATES PAIN 6/10 IN LLE. PRN PAIN MEDICATION ADMINISTERED. IV SITE LEAKING, NEW IV PLACED RIGHT FOREARM WNL. ASSESSMENT COMPLETE. LLE ELEVATED, ICE PACK IN PLACE. VSS. CALL LIGHT IN REACH.
--- NOTE | 2023-03-27 00:44 | NUR ---
CHECKED ON pt. AWAKE RESTING IN BED. STATES PAIN IS STILL BAD "09/12". DENIES ADDITIONAL ICE PACK OFFERED. PRN TORADOL ADMINISTERED. CALL LIGHT AND PERSONAL SUPPLIES IN REACH. LEFT LEG ELEVATED.
--- NOTE | 2023-03-27 02:18 | NUR ---
CHECKED ON pt. pt IS RESTING IN BED WITH EYES CLSOSED, BREATHING UNLABORED. NO DISTRESS NOTED.
--- NOTE | 2023-03-27 03:40 | NUR ---
pt SLEEPING, AWAKENS TO RN ENTERING ROOM FOR ROUNDING. PRN PAIN MEDICATION ADMINISTERED FOR 4/10 REPORTED PAIN IN LLE. ASSISTED pt TO REPOSITION. LEFT LEG ELEVATED ON PILLOW. DRAINAGE ON DRESSING CDI, UNCHANGED. SCD ON RIGHT LEG, HEEL PROTECTOR ON. CALL LIGHT IN REACH. pt DECLINES PO SNACK WITH PAIN MEDICATIONS OFFERED.
[2023-03-27 06:49] VITALS: BP 129/58
--- NOTE | 2023-03-27 06:55 | NUR ---
pt AWAKENS TO VOICE. VSS. URINAL EMPTIED, 300 ML VOID. DENIES PAIN AT THIS TIME. STATES SLEPT WELL. ASSISTED pt TO REPOSITION LEGS ON PILLOW, LEFT LEG ELEVATED. DRAINAGE UNCHANGED THIS SHIFT ON LLE. HEEL PROTECTOR AND SCD ON RIGHT LEG. CALL LIGHT IN REACH.
--- NOTE | 2023-03-27 07:47 | NUR ---
PT RESTING IN BED WITH EYES CLOSED. PT WAKES TO RN IN ROOM. MORNING MEDS AND PAIN MEDICATIONS PROVIDED. PT REPORTS "FEELING BETTER" THIS MORNING. ASSESSMENT COMPLETE.
--- NOTE | 2023-03-27 08:07 | NUR ---
PT PROVIDED WITH BLACK COFFEE PER REQUEST
--- NOTE | 2023-03-27 10:00 | NUR ---
Spoke with pt and updated to PT's recommendation for 1-3 days here for further PT. Pt states he is waiting to hear if his daughter will be here to stay with him for 1 month and his friend will add a second rail for him to get into his home. He is willing to go to a SNF if needed. Pt prefers to go home.
[2023-03-27 10:03] VITALS: BP 123/77
--- NOTE | 2023-03-27 10:28 | NUR ---
PATIENT ALERT AND ORIENTED. SITTING UP IN RECLINER. DENIES PAIN AT THIS TIME. QUESTIONS ANSWERED WHEN PLAN OF CARE DISCUSSED. DENIES FURTHER NEEDS.
--- NOTE | 2023-03-27 11:54 | NUR ---
Notified by julia Sosa CM. Pts daughter will be staying with him and his friend is adding the second rail to his entrace today.
--- NOTE | 2023-03-27 12:54 | NUR ---
Sitting up in recliner. Questions regarding SNF facilities. Also states his daughter is willing to stay with him for approximately 1 month. Patient states he also has a friend building a hand rail for him at home for his stairs.
[2023-03-27 13:49] VITALS: BP 148/65
--- NOTE | 2023-03-27 13:51 | NUR ---
Dr. Up update pts daughter will stay with him and friend is putting in a second rail today. PT recommendation is 1-3 more days of PT and then home. in agreement with this.
--- NOTE | 2023-03-27 16:02 | NUR ---
LYING IN BED, WATCHING TV. DENIES NEEDS AT THIS TIME. URINAL EMPTIED. URINE CONCENTRATED. CALL LIGHT IN REACH. CHARGE NURSE IN TO INFORM PATIENT WILL BE MOVED TO ROOM 109. PATIENT VERBALIZES UNDERSTANDING AND IS OK WITH BEING MOVED IN TO ANOTHER ROOM
--- NOTE | 2023-03-27 17:58 | NUR ---
SITTING UP IN BED, TALKING TO VISITOR.
[2023-03-27 18:53] VITALS: BP 138/82
--- NOTE | 2023-03-27 19:27 | NUR ---
REPORT RECEIVED FROM REGINE QUINTERO. pt RESTING IN BED AWAKE. DENIES PAIN. LEFT LEG ELEVATED. CALL LIGHT IN REACH.
[2023-03-27 20:17] VITALS: BP 156/82
--- NOTE | 2023-03-27 20:25 | NUR ---
pt AWAKE RESTING IN BED WATCHING TV. WATER REFILLED. pt STATES "THE PAIN IS COMING BACK, RATES PAIN 6/10 IN LLE. DRIED SANGUINOUS DRAINGE ON KERLIX. ASSISTED TO REPOSITION LEFT LEG ON PILLOWS. SCD ON RIGHT LEG. CSM INTACT BLE. PRN PAIN MEDICATION ADMINISTERED. PUDDING PROVIDED WITH PO MEDICATION. URINAL EMPTIED. CALL LIGHT IN REACH.
--- NOTE | 2023-03-27 22:10 | NUR ---
CALL LIGHT ANSWERED. pt COMPLAINS OF 8/10 PAIN IN LEFT LEG, LEG NOTED TO SLIDE OFF PILLOW, REPOSITIONED, ELEVATED ON PILLOW. PRN TORADOL ADMINISTERED. EDUCATION ON PAIN MANAGEMENT PROVIDED TO pt TO STAY ON TOP OF PAIN MEDICATION DURING DAY. SCD ON LLE, HEEL PROTECTOR ON. CALL LIGHT IN REACH.
--- NOTE | 2023-03-27 23:10 | NUR ---
CHECKED ON pt. RESTING IN BED WITH HOB ELEVATED WATCHING TV. STATES PAIN IS MUCH BETTER, 06/13. CALL LIGHT IN REACH.
[2023-03-28] VITALS (8 sets, daily range): BP systolic 118–152; BP diastolic 73–84
--- NOTE | 2023-03-28 01:05 | NUR ---
IN ROOM TO CHECK ON pt. pt RESTING IN BED WITH EYES CLOSED, BREATHING EQUAL AND UNLABORED. LEFT LEG ELEVATED. CALL LIGHT IN REACH.
--- NOTE | 2023-03-28 03:13 | NUR ---
CHECKED ON pt. RESTING IN BED WITH EYES CLOSED. BREATHING UNLABORED. NO DISTRESS NOTED.
--- NOTE | 2023-03-28 05:34 | NUR ---
IN ROOM FOR MORNING VS. pt AWAKENS TO VOICE. DENIES PAIN AT REST, REQUESTING PRN MEDICATIONS FOR PAIN MANAGEMENT. PRN MEDICATIONS ADMINISTERED. ENSURE PROVIDED. LEFT LEG ASSESSED, DRESSING DRY AROUND EXT FIXATOR. LEG REPOSITIONED ON PILLOWS, ELEVATED. CALL LIGHT IN REACH.
--- NOTE | 2023-03-28 07:00 | NUR ---
REPORT RECEIVED FROM CATERPILLAR TRACTOR OPERATOR RN GERSON. PATIENT IS SITTING IN BED AND RESPONDING TO PHARMACY RESIDENT AND RN. PATIENT STATED NO FURTHER NEEDS AT THIS TIME. CALL LIGHT AND PERSONAL BELONGINGS ARE WITHIN REACH.
--- NOTE | 2023-03-28 08:02 | NUR ---
PATIENT 0800 AND 0900 MEDICATIONS ADMINISTERED PER THE EMAR. FULL ASSESSMENT COMPLETE AND DOCUMENTED IN THE CHART. LUNG SOUNDS ARE CLEAR BILATERALLY IN ALL LUNG YO. PATIENT IS ON ROOM AIR. PATIENT WITH NORMAL S1 AND S2 ON AUSCULTATION. RADIAL PULSES ARE STRONG BILATERALLY. CAPILLARY REFILL IS LESS THAN 3 SECONDS IN THE UPPER AND LOWER EXTREMITIES BILATERALLY. IV SITE IS CLEAN, DRY, AND INTACT. IV SITE FLUSHES WELL WITH 10 ML NORMAL SALINE AND IS SALINE LOCKED. BOWEL TONES ARE ACTIVE IN ALL FOUR QUADRANTS. LLE WITH EXTERNAL FIXATOR IN PLACE. DRESSING WITH DRY DRAINAGE. PATIENT STATED NO PAIN AT THIS TIME. PATIENT WITH TINGLING IN THE LLE. PATIENT IS ALERT AND ORIENTED TIMES FOUR. PATIENT STATED NO FURTHER NEEDS AT THIS TIME. CALL LIGHT AND PERSONAL BELONGINGS ARE WITHIN REACH.
--- NOTE | 2023-03-28 09:17 | NUR ---
PATIENT IS WORKING WITH PT AT THIS TIME. RN ASKED IF HELP WAS NEEDED AND PT STATED NOT AT THIS TIME. PATIENT WITH CALL LIGHT AND PERSONAL BELONGINGS ARE WITHIN REACH.
--- NOTE | 2023-03-28 09:40 | NUR ---
Spoke with PT and pt as they visiting with him. Discussed with pt, I spoke with Suzanne from the office and she [place]. She also stated the rail cannot be placed until Monday. Pt denies this and states he does not need his grandson to put the rail in. His friend will place it today. Pt states his only need is a walker. He would like one from [employer] to keep and does not want to get one from [place]. I will request an rX. Pt denies other needs and states one of his children will be staying with him and they will make this work.
--- NOTE | 2023-03-28 09:55 | NUR ---
PATIENT AMBULATING IN THE HALLWAY WITH FRONT WHEELED WALKER AND STAND BY ASSIST. PATIENT ALSO BEING FOLLOWED WITH A WHEELCHAIR. PATIENT TOLERATING WELL.
--- NOTE | 2023-03-28 10:35 | NUR ---
PT stopped by my office and feel pt will be ready for dc tomorrow. I attempted to call pts daughter, Mel, (Pt gave me her number) to confirm assistance in the home and safe dc. I left a message.
--- NOTE | 2023-03-28 10:59 | NUR ---
dr saucedo in to see pt. plan is to discharge to home.
--- NOTE | 2023-03-28 10:59 | NUR ---
PERIPHERAL IV IN R) FOREARM AND MIDLINE IV IN R) ARM DC'D. CATHETERS INTACT AND DRSGS APPLIED. PT WANTS TO SHOWER, WILL SET UP.
--- NOTE | 2023-03-28 13:34 | NUR ---
PATIENT IS SITTING UPRIGHT IN THE RECLINER WITH THE LOWER EXTREMITIES ELEVATED. ASSOCIATE PROFESSOR OF KINESIOLOGY ARE IN [facility] ROOM AND DOING A LINEN CHANGE. PATIENT IS TALKING TO THE CNAS. PATIENT CALL LIGHT AND PERSONAL BELONGINGS ARE WITHIN REACH.
--- NOTE | 2023-03-28 13:36 | NUR ---
Rx for FWW was faxed to [facility] earlier. Received a call from Brian and they will likely deliver today.
--- NOTE | 2023-03-28 13:58 | NUR ---
PATIENT MOVED BACK TO THE BED WITH A FWW AND STAND BY ASSIST. PATIENT LEFT LOWER ETREMITY IS PROPPED UP ON 2 PILLOWS. PATIENT IS SITTING UPRIGHT IN THE BED. PATIENT STATED PAIN WAS 8/10 AND PRN PAID MEDICATION ADMINISTERED PER THE EMAR. DRESSING IS INTACT WITH DRY SEROSANGUINOUS DRAINAGE NOTED ON THE DRESSING. PATIENT GIVEN A DIET MJ FERNANDA UPON REQUEST. PATIENT STATED NO FURTHER NEEDS AT THIS TIME. CALL LIGHT AND PERSONAL BELONGINGS ARE WITHIN REACH.
--- NOTE | 2023-03-28 14:26 | NUR ---
Went to check up on patient and he was doing good. Emptied his urnial and refilled his water. patient is back in bed.
--- NOTE | 2023-03-28 17:18 | NUR ---
PATIENT IS LYING IN BED WITH THE HEAD OF BED ELEVATED. PATIENT IS RESTING WITH EYES CLOSED AND RESPIRATIONS ARE EVEN AND UNLABORED. PATIENT WITH CALL LIGHT AND PERSONAL BELONGINGS ARE WITHIN REACH.
--- NOTE | 2023-03-28 18:45 | NUR ---
PATIENT IS SITTING UPRIGHT IN THE BED. PATIENT WITH HIS NIECE AT THE BEDSIDE AND IS VISITING. PATIENT STATED NO NEEDS AT THIS TIME. CALL LIGHT AND PERSONAL BELONGINGS ARE WITHIN REACH.
--- NOTE | 2023-03-28 19:28 | NUR ---
REPORT RECEIVED FROM DAY SHIFT RN. PATIENT RESTING IN BED. FAMILY MEMBER AT BEDSIDE. PATIENT HAS NO CURRENT NEEDS. CALL LIGHT IN REACH.
--- NOTE | 2023-03-28 21:44 | NUR ---
PATIENT RESTING IN BED. VS AND I&Os OBTAINED AND RECORDED. EVENING MEDICATION ADMINISTERED. ASSESSMENT COMPLETE. MINIMAL DRY DRAINAGE ON LLE DRESSING. PATIENT REPORTS 4/10 LLE PAIN. PRN PAIN MEDICAION ADMINISTERED, SEE MAY. IV FLUSHED AND WNL. FRESH WATER AND ICE PACK PROVIDED. SCD AND HEEL PROTECTOR ON RLE. PATIENT HAS NO FURTHER NEEDS. CALL LIGHT IN REACH.
--- NOTE | 2023-03-28 23:46 | NUR ---
PATIENT RESTING IN BED ON BACK WITH EYES CLOSED. RESPIRATIONS EVEN AND UNLABORED. CALL LIGHT IN REACH.
[2023-03-29] VITALS (7 sets, daily range): BP systolic 112–136; BP diastolic 64–91
--- NOTE | 2023-03-29 01:29 | NUR ---
PATIENT RESTING IN BED WITH EYES CLOSED. PRN PAIN MEDICAITON ADMINISTERED PER PATIENT REQUEST. NO FURTHER NEEDS. CALL LIGHT IN REACH.
--- NOTE | 2023-03-29 03:39 | NUR ---
PATIENT RESTING IN BED ON BACK WITH EYES CLOSED. REPIRATIONS EVEN AND UNLABORED. CALL LIGHT IN REACH.
--- NOTE | 2023-03-29 05:45 | NUR ---
PATIENT RESTING IN BED. VS AND I&Os OBTAINED AND RECORDED. ASSESSMENT COMPLETE. PATIENT REPORTS 0/10 PAIN IN LLE BUT REQUESTED PRN PAIN MEDICATION TO "STAY ON TOP OF THE PAIN". LLE DRESSING INTACT WITH MINIMAL DRY DRAINAGE. LLE ELEVATED WITH [address] IN PLACE. SCD ON RLE. FRESH WATER PROVIDED. PATIENT HAS NO FURTHER NEEDS. CALL LIGHT IN REACH. FRESH ICE PACK PROVIDED.
--- NOTE | 2023-03-29 07:00 | NUR ---
REPORT RECEIVED FROM MEAT COOLER RN SHIRIN. PATIENT IS AWAKE AND SITTING UPRIGHT IN THE BED. PATIENT GIVEN A FRESH CUP OF COFFEE UPON REQUEST. PATIENT WITH LLE WITH TWO PILLOWS UNDERNEATH AND HEAL PROTECTORS IN PLACE. PATIENT STATED NO FURTHER NEEDS AT THIS TIME. CALL LIGHT AND PERSONAL BELONGINGS ARE WITHIN REACH.
--- NOTE | 2023-03-29 08:39 | NUR ---
PT ASSISTED UP BY NAC TO CHAIR, EATING BREAKFAST AT THIS TIME. PAIN 6/10 AFTER GETTING UP AND MOVING. SBA W/ FWW FOR MOBILITY. WATCHING TV DURING BREAKFAST, PRN OXYCODONE/MIRALAX GIVEN THIS MORNING. PATIENT STATES BM YESTERDAY WAS NOT LOOSE. ALL PATIENT CARE NEEDS MET. CALL LIGHT WITHIN REACH AT THIS TIME. NO FURTHER NEEDS AT THIS TIME.
--- NOTE | 2023-03-29 09:20 | NUR ---
Spoke with pt and asked if he is ready for dc today. Updated by pt he will not dc until tomorrow per Dr. Up. I called Dr. Up as I was told by PT last night and this am pt was cleared by PT. Per Dr. Up pt PT notes states pt required 1-2 more days. He will dc the pt tomorrow. REturned and spoke with pt and clarified Dr. will dc him tomorrow. Pt states his daughter will be able to pick him up tomorrow afternoon and she or granddaughter will stay will him. Plan for dc tomorrow.
--- NOTE | 2023-03-29 10:00 | NUR ---
THIS RN IN ROOM ROUNDING WITH DR. GONZÁLES - VERBAL ORDERS RECIEVED TO PREFORM PIN CARE USING HALF STRENGTH HYDROGEN PEROXIDE AND SWABS TO CLEAN AT INSERTION SITE. CARE COMPLETED, PROXIMAL INSERTION END COVERED WITH ALYVN AND DRAIN SPONGE AND KERLEX. DISTAL SITE LEFT OPEN TO AIR PER DR. GONZÁLES INSTRUCTION. PT TOLERATED WELL WITHOUT DIFFICULTY OR PAIN.
--- NOTE | 2023-03-29 12:03 | NUR ---
PATIENT MORNING MEDICATIONS ADMINISTERED PER THE EMAR. FULL ASSESSMENT COMPLETE AND DOCUMENTED IN THE CHART. PATIENT STATED PAIN OF 1/10 BUT REFUSING PRN PAIN MEDICATION AT THIS TIME. PATIENT LUNG SOUNDS ARE CLEAR IN ALL LUNG YO BILATERALLY. PATIENT IS ON ROOM AIR. PATIENT HEART TONES WITH NORMAL S1 AND S2 ON AUSCULTATION. PATIENT BOWEL TONES ARE ACTIVE IN ALL FOUR QUADRANTS. PATIENT DENIES NUMBNESS AND TINGLING. CMS INTACT. RADIAL AND PEDAL PULSES PALPATED. LLE EXTERNAL FIXATOR IN PLACE AND EXTREMITY IS UP ON TWO PILLOWS. PINS ON THE LOWER PORTION OF THE EXTERNAL FIXATOR IS OPEN TO AIR. THE PINS UP ABOVE ARE DRESSED WITH A FOAM DRESSING AND GAUZE. PATIENT STATED NO FURTHER NEEDS AT THIS TIME. CALL LIGHT AND PERSONAL BELONGINGS ARE WITHIN REACH.
--- NOTE | 2023-03-29 14:21 | NUR ---
PATIENT IS SITTING UPRIGHT IN THE BED AND GETTING A BED BATH FROM MARTHA. PATIENT RECEIVED EDUCATION ON PAIN MEDICATION MANAGEMENT FROM THE STUDENT NURSE. PATIENT WITH THE DISTAL PINS ON THE EXTERNAL FIXATOR OPEN TO AIR AND DRY DRAINAGE NOTED ON THE SKIN. THE PROXIMAL PINS ARE COVERED WITH DRESSING THAT WAS CHANGED TODAY. NO NEW DRAINAGE NOTED ON THE DRESSING. PATIENT STATED NO FURTHER NEEDS AT THIS TIME. CALL LIGHT AND PERSONAL BELONGINGS ARE WITHIN REACH.
--- NOTE | 2023-03-29 15:08 | NUR ---
Notified bY PT pt new walker delivered yesterday cannot be adjusted correctly and is uneven. I called [facility] and they will deliver a new walker tomorrow.
--- NOTE | 2023-03-29 15:18 | NUR ---
patient got a bed bath. I gave him a warm towel to wash his face. nurse was in the room as well, while he was talking we were washing him we and gave him a new gowned.
--- NOTE | 2023-03-29 16:24 | NUR ---
PATIENT AMBULATED BACK TO BED WITH FRONT WHEELED WALKER. PATIENT TOLERATED WELL. PATIENT STATED NO PAIN AT THIS TIME. PATIENT WITH THE LEFT LOWER EXTREMITY ELEVATED ON TWO PILLOWS. PATIENT EXTERNAL FIXATOR IS OPEN TO AIR. THE RIGHT LOWER EXTREMITY WITH SCDS AND ANKLE PROTECTORS IN PLACE. PATIENT STATED NO FURTHER NEEDS AT THIS TIME. CALL LIGHT AND PERSONAL BELONGINGS ARE WITHIN REACH.
--- NOTE | 2023-03-29 18:41 | NUR ---
PATIENT IS SITTING UPRIGHT IN BED. PATIENT IS TALKING ON THE PHONE WITH THE TV. PATIENT WITH CALL LIGHT AND PERSONAL BELONGINGS ARE WITHIN REACH.
--- NOTE | 2023-03-29 19:20 | NUR ---
REPORT RECIEVED FROM DAY SHIFT RN. PATIENT RESTING IN BED WAITING FOR FRIENDS TO COME VISIT. PATIENT HAS NO FURTHER NEEDS. CALL LIGHT IN REACH.
--- NOTE | 2023-03-29 20:32 | NUR ---
PATIENT RESTING IN BED. SCHEDULED MEDICATIONS ADMINISTERED, SEE MAR. ASSESSMENT COMPLETE. PATIENT REPORTS NO CURRENT PAIN. LLE ELEVATED WITH 2 PILLOWS. RLE SCD AND HEEL PROTECTOR IN PLACE. IV FLUSHED AND WNL. PATIENT REPORTS NO FURTHER NEEDS. CALL LIGHT IN REACH.
--- NOTE | 2023-03-29 22:33 | NUR ---
CALL LIGHT ANSWERED. PATIENT REPORTS 4/10 LLE PAIN. PRN PAIN MEDICAITON ADMINISTERED PER PATIENT REQUEST. NO FURTHER NEEDS. CALL LIGHT IN REACH.
--- NOTE | 2023-03-29 23:19 | NUR ---
PATIENT RESTING IN BED. PATIENT USING URINAL TO VOID. URINAL EMPTIED. PATIENT HAS NO FURTHER NEEDS. CALL LIGHT IN REACH.
--- NOTE | 2023-03-30 01:36 | NUR ---
PATIENT RESTING IN BED ON BACK. RESPIRATIONS EVEN AND UNLABORED. CALL LIGHT IN REACH.
--- NOTE | 2023-03-30 04:07 | NUR ---
PATIENT RESTING IN BED ON BACK WITH EYES CLOSED. RESPIRATIONS EVEN AND UNLABORED. CALL LIGHT IN REACH.
[2023-03-30 05:47] VITALS: BP 117/61
--- NOTE | 2023-03-30 05:49 | NUR ---
CALL LIGHT ANSWERED. PATIENT UP TO BATHROOM WITH MINIMAL SBA AND FWW TO HAVE A BM. PATIENT BACK TO BED. PATIENT HIREN WELL. VS AND I&Os OBTAINED AND RECORDED. ASSESSMENT COMPLETE. PATIENT REPORTS 4/10 LLE PAIN. PRN PAIN MEDICATION PROVIDED PER PATIENT REQUEST. MINIMAL DRAINAGE NOTED ON LLE. FRESH WATER PROVIDED. PATIENT HAS NO FURTHER NEEDS. CALL LIGHT IN REACH. RLE HAS HEEL PROTECTOR AND SCD IN PLACE.
--- NOTE | 2023-03-30 07:15 | NUR ---
RECIEVED PT REPORT FROM NURSE. PT IS UP IN BED AND TALKING WITH DR. PT STATES THAT HE NEEDS TO CALL FAMILY TO GET AN IDEA OF WHAT TIME HE WILL BE ABLE TO GET A RIDE DUE TO DISCHARGE TODAY. PT REQUESTED COFFEE. NO OTHER CARES REQUESTED OR NEEDED AT THIS TIME CALL LIGHT WITHIN REACH.
--- NOTE | 2023-03-30 07:55 | NUR ---
MEDS GIVEN. PT STATES THAT FAMILY MEMBER WILL BE ABLE TO PICK HIM UP TODAY BETWEEN [id number]. DR INFORMED PER PATIENT REQUEST. NO OYHER CARES AT THI TIME CALL LIGHT WITHIN REACH
[2023-03-30] MEDS ORDERED: XARELTO10 MG PO ×2 (07:59)
[2023-03-30] MEDS ORDERED: CARVEDILOL6.25 MG PO ×2 (08:00)
[2023-03-30] MEDS ORDERED: HYDROCODON-ACE1 EA11 PO ×2 (08:02)
[2023-03-30] MEDS ORDERED: SENNA LAX8.6 MG PO ×2 (08:02)
[2023-03-30 09:59] VITALS: BP 126/69
--- NOTE | 2023-03-30 10:30 | NUR ---
Spoke with Leonel. He plans on dc today. [place] called and will deliver a walker this morning. He denies further needs. Daughter will pick him up and his granddaughter and daughter will be staying with him. He states his second rail for his steps has been placed. He also states his bathroom is being redone to make it easier for him to use. He denies further needs and will dc today.
--- NOTE | 2023-03-30 12:33 | NUR ---
PT IS IN ROOM EATING LUNCH. NO OTHER CARES NEEDED AT THIS TIME CALL LIGHT WITHIN REACH
--- NOTE | 2023-03-30 13:00 | NUR ---
Notified by staff pt maria isabel gomez arrived.
[2023-03-30 14:19] VITALS: BP 142/95
== END 2023-03-30 14:30 | disposition home or self-care (01) | DRG 494 ==
LOC: ED 13:57 → MS 16:32
PROVIDERS: Emergency Medicine; Internal Medicine; ADMIT Specialist; ATTEND Specialist
PROC: 0QSH34Z Reposition Left Tibia with Internal Fixation Device, Percutaneous Approach (ICD-10-PCS; principal; 2023-03-24 09:15)
DX: S82.842A Displaced bimalleolar fracture of left lower leg, initial encounter for closed fracture (principal); I25.10 Atherosclerotic heart disease of native coronary artery without angina pectoris; I10 Essential (primary) hypertension; E87.6 Hypokalemia; W18.30XA Fall on same level, unspecified, initial encounter; Z87.442 Personal history of urinary calculi; Z87.891 Personal history of nicotine dependence; Z90.49 Acquired absence of other specified parts of digestive tract; Z87.19 Personal history of other diseases of the digestive system; Z95.5 Presence of coronary angioplasty implant and graft; Z98.890 Other specified postprocedural states; Z91.011 Allergy to milk products; Z79.899 Other long term (current) drug therapy; Z79.2 Long term (current) use of antibiotics; Z79.891 Long term (current) use of opiate analgesic
CPT/HCPCS: 01462; 36415; 64445; 64447; 73590; 73600; 73610; 73630; 76942; 80048; 80053; 85025; 93005; 93010; 97110; 97116; 97161; 97530; 99284-25; A9270; C1713; J0690; J1100; J1885; J2001; J2405; J2704; J2795; J7121

== ENCOUNTER 2023-03-30 17:04 | Observation (INO) | payer MEDICARE, OTHER ==
[~2023-03-30] VITALS: Ht 175.3 cm; Wt 75.0 kg
[~2023-03-30 17:04] MED LIST changes: +ATORVASTATIN CA20 MG PO; +BAYER CHEWABLE81 MG PO; +CARVEDILOL12.5 MG PO; +CARVEDILOL6.25 MG PO; +HYDROCODON-ACE1 EA11 PO; +IRBESARTAN300 MG PO; +NICORETTE2 M1 BUCCAL; +OXYBUTYNIN CHLOR5 M1 PO; +SENNA LAX8.6 MG PO; +SPIRONOLACTONE25 MG PO; +XARELTO10 MG PO
--- OUTSIDE RECORDS SUMMARY | 2023-03-30 17:08 | XMS ---
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 Rula has no Care Guidelines for this patient. Kar[facility] (12 MO.) [facility] T[facility] 2 NOTE: Visits indicate total known visits. ED/[facility] VISIT TRACKING (12 MO.) [facility]2023 17:05 [facility] COMPLAINT: - FALL 03/23/2023 13:59 [facility] TYPE: Emergency COMPLAINT: - L LEG PAIN/ INJ INPATIENT VISIT TRACKING (12 MO.) 03/23/2023 16:32 [facility] TYPE: Medical Surgical COMPLAINT: - LEFT ANKLE FRACTURE [id number]
[2023-03-30 18:24] LABS: BASOPHILS 0.9 % (0-2); EOSINOPHILS 1.5 % (0-6); HEMATOCRIT 35.6 % (35.0-50.0); HEMOGLOBIN 11.7 g/dL (12.0-18.0); LYMPHOCYTES 9.9 % (24-44); MCHC 32.9 g/dl (30-36); MCV 91.1 fl (81-99); MONOCYTES 8.9 % (0-12); NEUTROPHILS 78.8 % (39-80); PLATELET COUNT 291 K/uL (140-440); RBC 3.91 M/ul (4.3-5.7); RDW 13.1 (10.5-15.0)
[2023-03-30 18:39] LABS: ALBUMIN 3.2 g/dL (3.4-5.0); ALBUMIN/GLOBULIN RATIO 0.78 (1.1-2.4); BILIRUBIN, TOTAL 0.5 ng/dL (0.2-1.0); BUN/CREATININE RATIO 24.03 (6.0-28.6); CALCIUM 9.2 mg/dL (8.5-10.1); CREATININE, SERUM 1.04 mg/dL (0.70-1.30); PROTEIN, TOTAL 7.3 g/dL (6.4-8.2)
[2023-03-30 18:53] VITALS: BP 165/86
--- NOTE | 2023-03-30 19:38 | NUR ---
REPORT RECIEVED FROM DAY SHIFT RN. PATIENT RESTING IN BED. NO FURTHER NEEDS. CALL LIGHT IN REACH.
[2023-03-30 20:13] VITALS: BP 1346/86; BP 146/86
--- NOTE | 2023-03-30 21:02 | NUR ---
PATIENT RESTING IN BED WITH VISITORS AT BEDSIDE. LEFT AC IV FLUSHED AND WNL. PAITENT LEFT FOREARM IV INFILTRATED. THIS RN DCd LEFT FOREARM IV. DCd WNL WITH CATHETER TIP INTACT. ASSESSMENT COMPLETE. PATIENT REPORTS 8/10 PAIN IN LLE. PRN PAIN MEDICATION ADMINISTERED. PATIENT REPORTS NO CURRENT NEEDS. CALL LIGHT IN REACH.
--- NOTE | 2023-03-30 22:49 | NUR ---
PATIENT RESTING IN BED ON BACK WITH EYES CLOSED. RESPIRATIONS EVEN AND UNLABORED. CALL LIGHT IN REACH.
--- NOTE | 2023-03-31 00:37 | NUR ---
PATIENT RESTING IN BED ON BACK WITH EYES CLOSED. RESPIRATIONS EVEN AND UNLABORED. CALL LIGHT IN REACH.
[2023-03-31 01:49] VITALS: BP 120/59
--- NOTE | 2023-03-31 02:16 | NUR ---
pt in bed with eyes closed. VSS. I&O's done. no other needs at this time. call light with in reach.
--- NOTE | 2023-03-31 04:10 | NUR ---
PATIENT RESTING IN BED ON BACK WITH EYES CLOSED. RESPIRATIONS EVEN AND UNLABORED. CALL LIGHT IN REACH.
[2023-03-31 05:40] VITALS: BP 104/80
--- NOTE | 2023-03-31 05:43 | NUR ---
PATIENT RESTING IN BED. ASSESSMENT COMPLETE. PATIENT REPORTS NO CURRENT PAIN. LLE DRESSING C/D/I. LLE ELEVATED ON 2 PILLOWS. PATIENT HAS NO CURRENT NEEDS. CALL LIGHT IN REACH.
--- NOTE | 2023-03-31 07:35 | NUR ---
recieved pt report from nurse [id number]. pt is AWAKE A+O. PT IS CURRENTLY IN BED RELAXING AND HAD QUESTIONS ABOUT HOW LONG HIS STAY WILL BE AT [facility]. WILL HAVE CASE MANAGEMENT SPEAK TO HIM ABOUT IT. NO CARES NEEDED OR REQUESTED AT THIS TIME. CALL LIGHT WITHIN REACH
--- NOTE | 2023-03-31 08:11 | NUR ---
MED REC COMPLETE
[2023-03-31 08:52] VITALS: BP 125/77
--- NOTE | 2023-03-31 09:05 | NUR ---
pt is in bed resting while on phone. no abnormal findings from baseline. pt states that he is 4/10 pain. tylenol requested and given. no other cares needed or requested at this time call light within reach
--- NOTE | 2023-03-31 09:08 | NUR ---
SPOKE WITH SAIRA AT [facility], WILL BE ABLE TO ACCEPT PATIENT, LIKELY THIS AFTERNOON. ACCEPTANCE IS PENDING A DISCHARGE FROM THE FACILITY TODAY AND SAIRA WILL CALL BACK AROUND 1100 THIS AM TO CONFIRM.
--- NOTE | 2023-03-31 09:52 | NUR ---
SPOKE WITH PATIENT REGARDING GOING HOME AND RETURNING TO FACILITY. STATES HE FELL AFTER OPENING HIS FRONT DOOR, LOST HIS BALANCE. THINGS WALKER MAY HAVE BEEN CAUGHT BETWEEN PLANKS ON DECK, BUT IS UNSURE IF THAT WAS ACTUALLY THE CASE. PLANNING TO GO TO SNF. INFORMED OF POSSIBILITY OF SNF PLACEMENT THIS AFTERNOON, PENDING HAPPENINGS AT [facility]. VERBALIZES UNDERSTANDING. VOICES FEAR OF STAYING AT [facility] RECORDER. INFORMED HIM SNF IS SHORT TERM, EXPLAINED SNF. VERBALIZES UNDERSTANDING. IS OK WITH GOING FOR SNF. STATES HE IS AWARE HE NEEDS MORE THERAPIES TO ENSURE HIS SAFETY. INFORMED STAFF WILL RETURN TO UPDATE HIM ON PLAN WHEN MORE INFORMATION IS AVAILABLE. VERBALIZES UNDERSTANDING.
--- NOTE | 2023-03-31 11:28 | NUR ---
pt states that he is having some pain but its tolerable . when asked if he would like me to ask dr pride to give something stronger pt stated no. no other cares needed or requested at this time
--- NOTE | 2023-03-31 11:44 | NUR ---
RECIEVED NOTIFICATION FROM AT [facility], PATIENT MAY BE ACCEPTED THIS AFTERNOON. DR. GONZÁLES NOTIFIED.
--- NOTE | 2023-03-31 11:51 | NUR ---
NOTIFIED PATIENT OF ACCEPTANCE TO [facility]. WOULD LIKE TRANSPORT BY WHEELCHAIR VAN TO FACILITY. INFORMED OF THINGS HE WILL NEED WHILE HE IS THERE. STATES HE WILL CALL HIS DAUGHTER AND UPDATE HER.
--- NOTE | 2023-03-31 13:08 | NUR ---
SPOKE WITH DR. GONZÁLES, VERBAL ORDER TO DC TO [facility] FOR SNF. WHEELCHAIR VAN SET UP FOR 1530 THIS AFTERNOON. ORDERS FAXED TO [facility]. PATIENT NOTIFIED. NO QUESTIONS AT THIS TIME. Heather PORTILLO, RN/CHARGE NURSE, NOTIFIED OF DC TIME.
--- NOTE | 2023-03-31 13:26 | NUR ---
Spoke with SAIRA at [facility], they will arrive to pick patient up at 14:15 today. Wheelchair van cancelled.
[2023-03-31 13:50] VITALS: BP 149/62
--- NOTE | 2023-04-02 18:37 | EKG ---
[facility] [address] [facility] [address] [place], [place] [address] Signed Sinus rhythm with occasional premature ventricular complexes Inferior infarct (cited on or before 09-JAN-2018) Nonspecific T wave abnormality Confirmed by Kartik Raymundo M.D. ([id number]) on 04/02/2023 6:37:03 PM Electronically Signed By: KARTIK RAYMUNDO 04/02/23 1837 PATIENT NAME: BEANRADHA ESTRADA Electrocardiogram DATE OF : 47 PHYSICIAN: KARTIK RAYMUNDO REPORT #: [id number] REPORT IS CONFIDENTIAL AND NOT TO BE RELEASED WITHOUT AUTHORIZATION
== END 2023-03-31 14:10 | disposition home or self-care (01) ==
LOC: ED 17:04 → MS 17:06
PROVIDERS: Emergency Medicine; ADMIT Specialist; ATTEND Specialist
DX: S82.842A Displaced bimalleolar fracture of left lower leg, initial encounter for closed fracture (principal); E78.00 Pure hypercholesterolemia, unspecified; I10 Essential (primary) hypertension; Z72.0 Tobacco use
CPT/HCPCS: 36415; 73590; 80053; 85025; 93005; 93010; A9270; G0378

== ENCOUNTER 2024-04-16 14:32 | Inpatient (IN) | payer MEDICARE, OTHER ==
[~2024-04-16] VITALS: Ht 175.3 cm; Wt 65.8 kg
[~2024-04-16 14:32] MED LIST changes: +ADULT LOW DOSE81 MG PO; +LASIX20 MG PO
[2024-04-16] MEDS ORDERED: AMLODIPINE BESYL5 MG PO (15:07)
[2024-04-16 15:26] LABS: HEMATOCRIT 38.4 % (35.0-50.0); MCH 29.8 (27-36); MCHC 33.9 g/dl (30-36); MCV 87.8 fl (81-99); PLATELET COUNT 228 K/uL (140-440); RBC 4.37 M/ul (4.3-5.7); RDW 13.4 (10.5-15.0)
[2024-04-16 15:41] LABS: BANDS, MANUAL DIFF 1; LYMPHOCYTES, MANUAL DIFF 5; MONOCYTES, MANUAL DIFF 4; NEUTROPHILS, MANUAL DIFF 90
[2024-04-16 15:50] LABS: ALBUMIN 3.8 g/dL (3.4-5.0); ALBUMIN/GLOBULIN RATIO 1.03 (1.1-2.4); ANION GAP 13.4 (7-21); BILIRUBIN, TOTAL 0.6 ng/dL (0.2-1.0); BUN/CREATININE RATIO 24.39 (6.0-28.6); CALCIUM 9.4 mg/dL (8.5-10.1); CREATININE, SERUM 1.64 mg/dL (0.70-1.30); POTASSIUM 4.4 mmol/L (3.5-5.1); PROTEIN, TOTAL 7.5 g/dL (6.4-8.2)
[2024-04-16 16:42] LABS: BILIRUBIN, URINE NEGATIVE (negative); BLOOD/HGB, URINE LARGE (Negative); KETONE, URINE NEGATIVE (Negative); LEUK ESTERASE, URINE NEGATIVE (negative); NITRITE, URINE NEGATIVE (negative); PH, URINE 5.5 (5-7)
[2024-04-16 16:50] LABS: BACTERIA, URINE NONE SEEN /hpf (negative); CRYSTALS, URINE NONE SEEN (0-1+); EPITHELIAL CELLS, URINE SQUAMOUS 2+ /lpf (0-1+)
[2024-04-16 16:51] LABS: COLLECTION TYPE, URINE CLEAN CATCH; REFLEX CULTURE, URINE No (No)
[2024-04-16] MEDS ORDERED: ondansetron HCL 4 MG/2 ML VIAL IV PRN (18:30)
[2024-04-16] MEDS ORDERED: ACETAMINOPHEN 325 MG TAB PO PRN (18:30)
[2024-04-16] MEDS ORDERED: SODIUM CHLORIDE 0.9% 1,000 ML IV SCH (18:30)
[2024-04-16 19:26] VITALS: BP 127/68
--- NOTE | 2024-04-16 19:35 | NUR ---
PT TO FLOOR WITH ED RN VIA STRETCHER. ALERT AND ORIENTED. ABLE TO TRANSFER SELF TO BED. REPORT RECEIVED. VS OBTAINED. IVF INFUSING PER ORDER. CUSTOMER SUPPORT CONSULTANT IN FOR ADMISSION.
--- NOTE | 2024-04-16 19:50 | NUR ---
ADMISSION HISTORY COMPLETE WITH pt AND DAUGHTER CHINMAY. pt ALERT AND ORIENTED. DR. SOARES IN ROOM. VERBAL ORDERS RECEIVED AND REPEATED BACK FOR LABS AND BLOOD SUGAR CHECKS. MD ASSESSING pt. PRIMARY RN IN ROOM. IVF INFUSING WNL. CALL LIGHT AND PERSONAL SUPPLIES IN REACH. SANDWICH PROVIDED. WALLET PLACED IN ROOM LOCKBOX.
[2024-04-16] MEDS ORDERED: IBLOOD GLUCOSE TEST STRIP 1 EA TEST VI PRN (20:15)
[2024-04-16] MEDS ORDERED: IBLOOD GLUCOSE TEST STRIP 1 EA TEST VI SCH (21:00)
[2024-04-16] MEDS ORDERED: MELATONIN 3 MG TAB PO PRN (21:00)
[2024-04-16] MEDS ORDERED: HEParin SOD (PORCINE) 5,000 UNIT/ML SDV SUB-Q SCH (21:00)
[2024-04-16] MEDS ORDERED: HYDROCODONE/ACETA 5/325 TAB PO PRN (22:00)
--- NOTE | 2024-04-16 22:01 | NUR ---
ADMISSION ASSESSMENT COMPLETE. PT REPORTS RIGHT LEG PAIN 5/10. NO REDNESS, WARMTH, OR EDEMA NOTED. PEDAL PULSES PALPABLE BILAT. NO PRN'S AVAILABLE. NOTIFIED. NEW TELEPHONE ORDERS RECEIVED VERIFIED WITH READBACK METHOD. PT DENIES NAUSEA OR SOB. SCHEDULED MEDS ADMIN PER EMAR. ALLEVYN APPLIED TO SHEAR WOUNDS ON BILAT ELBOWS. ASSISTED TO REPOSITION FOR COMFORT. WARM BLANKET PROVIDED. PT ORIENTED TO ROOM AND NURSE CALL LIGTH. BED ALARM FOR SAFETY. CALL LIGHT WITHIN REACH.
[2024-04-16 23:19] LABS: ANION GAP 13.4 (7-21); BUN/CREATININE RATIO 28.96 (6.0-28.6); CALCIUM 8.5 mg/dL (8.5-10.1); CREATININE, SERUM 1.45 mg/dL (0.70-1.30); POTASSIUM 3.4 mmol/L (3.5-5.1)
[2024-04-17] VITALS (9 sets, daily range): BP systolic 11–131; BP diastolic 48–70
--- NOTE | 2024-04-17 00:19 | NUR ---
PT AWAKE IN BED. REPORTS PAIN MUCH IMPROVED AFTER PRN. ASSISTED TO REPOSITION IN BED. FRESH WATER PROVIDED. NO FURTHER NEEDS.
--- NOTE | 2024-04-17 02:43 | NUR ---
PT RESTING WITH EYES CLOSED. AWAKENS EASILY. UP TO SIDE OF BED WITH 2PA TO VOID 225 ML CONCENTRATED URINE. PT MOVED WELL WITH MINIMAL PAIN. BACK TO BED, HIREN WELL. VS AND I&O OBTAINED. ASSESSMENT COMPLETE. MRI SCREENING COMPLETE. NO FURTHER NEEDS. CALL LIGHT IN REACH.
--- NOTE | 2024-04-17 05:22 | NUR ---
LAB IN FOR MORNING DRAW. VS AND I&O OBTAINED. PT DENIES PAIN AT THIS TIME. FRESH WATER PROVIDED. NO FURTHER NEEDS. BED ALARM FOR SAFETY. CALL LIGHT IN REACH.
[2024-04-17 05:28] LABS: BASOPHILS 0.5 % (0-2); EOSINOPHILS 0.2 % (0-6); HEMATOCRIT 31.1 % (35.0-50.0); HEMOGLOBIN 10.6 g/dL (12.0-18.0); MCV 88.3 fl (81-99); MONOCYTES 10.9 % (0-12); NEUTROPHILS 70.4 % (39-80); PLATELET COUNT 171 K/uL (140-440); RBC 3.52 M/ul (4.3-5.7); RDW 13.9 (10.5-15.0)
[2024-04-17 05:48] LABS: ALBUMIN 2.8 g/dL (3.4-5.0); ALBUMIN/GLOBULIN RATIO 0.93 (1.1-2.4); ANION GAP 14.4 (7-21); BILIRUBIN, TOTAL 0.4 ng/dL (0.2-1.0); BUN/CREATININE RATIO 31.57 (6.0-28.6); CREATININE, SERUM 1.14 mg/dL (0.70-1.30); MAGNESIUM 2.1 mg/dL (1.8-2.4); POTASSIUM 3.4 mmol/L (3.5-5.1); PROTEIN, TOTAL 5.8 g/dL (6.4-8.2); TSH, 3RD GENERATION 3.225 uIU/mL (0.358-3.740)
--- NOTE | 2024-04-17 07:29 | NUR ---
RECIEVED SHIFT REPORT. PT IS RESTING IN BED, EYES CLOSED, BREATHING EVEN AND UNLABORED. CALL LIGHT IN REACH.
--- NOTE | 2024-04-17 08:43 | NUR ---
MORNING ASSESSMENT COMPLETE. PT IS AWAKE IN BED. DISCUSSED MORNING MEDS. NO QUESTIONS. PT STATES PAIN BIALT LOWER EXT WHEN BENDING AT THE KNEE ONLY. PRN PAIN MEDICATION ADMINISTERED (PER EMAR). STATES NUMBNESS WAS PRESENT ON ARRIVAL BUT DENIES ANY PRESENT AT THIS TIME. PT BOOSTED IN BED, SET UP FOR BREAKFAST. LUNG SOUNDS COURSE THROUGHOUT, LOOSE NONPRODUCTIVE COUGH. CALL LIGHT IN REACH. DENIES NEEDS AT THIS TIME.
[2024-04-17] MEDS ORDERED: POTASSIUM CHLORIDE 10 MEQ TABCR PO ONE (09:00)
[2024-04-17] MEDS ORDERED: allopurinoL 300 MG TAB PO SCH (09:00)
--- NOTE | 2024-04-17 10:15 | NUR ---
EDITH FROM MRI TAKING PT. PT UNHOOKED FROM IVF.
--- NOTE | 2024-04-17 10:27 | NUR ---
Patient assisted to bathroom. PT entered room to work with patient.
--- NOTE | 2024-04-17 11:21 | NUR ---
PT CONNECTED BACK TO IVF. PT DENIES ANY NEEDS AT THIS TIME. CALL LIGHT IN REACH
--- NOTE | 2024-04-17 11:47 | NUR ---
UR CLINICAL REVIEW: 2 MN FOR [facility] INPT CRITERIA FOR RHABDO/AMARILIS MEDICARE INPT 04/16/24 @ 1837 ORDER MATCHES REG NO AUTH REQUIRED PER MEDICARE GUIDELINES DISCHARGE TO HOME WHEN STABLE
[2024-04-17] MEDS ORDERED: PHARMACY RENAL DOSE ADJUSTMENT 1 DOSE MISC PO SCH (12:00)
--- NOTE | 2024-04-17 12:55 | NUR ---
PT AWAKE IN BED, DENIES NEEDS. CALL LIGHT IN REACH.
--- NOTE | 2024-04-17 14:25 | NUR ---
SBA to bathroom. Patient has been having unmeasured voids, instructed to use the urinal. Daughter in room visiting.
--- NOTE | 2024-04-17 14:33 | NUR ---
PT LAYING IN BED WITH EYES CLOSED AND CHEST RISE EQUAL BILAT, PT HAS CALL LIGHT IN REACH.
--- NOTE | 2024-04-17 16:18 | NUR ---
PT LAYING IN BED WITH DAUGHTER PRESENT IN ROOM, PT HAS NO COMPLAINTS AT THIS TIME CALL LIGHT IN REACH.
--- NOTE | 2024-04-17 16:30 | NUR ---
Spoke with pt and his daughter. Pt does not feel he is weak and walks without problem. He no longer uses his walker. He did start using a cane yesterday. Pt lives 2 blocks from his daughter. He states he drives. Pt has had falls. Pt is now agreeable to a Life Alert and family will order. Pt denies other needs. He plans on dc to home when he is released. He denies financial issues. Pt does his own grocery shopping, cooking, and cleaning. Daughter will assist him if needed.
[2024-04-17] MEDS ORDERED: CARVEDILOL12.5 MG PO (17:13)
[2024-04-17] MEDS ORDERED: PANTOPRAZOLE SODIUM 40 MG TABEC PO SCH (17:29)
[2024-04-17] MEDS ORDERED: CALCIUM CARBONATE 500 MG CHEW PO PRN (17:30)
--- NOTE | 2024-04-17 17:53 | NUR ---
PT AMBULATED FROM REST ROOM AND RETURNED TO BED WITH 1PA AND CANE. PT GIVEN PRN TUMS. PT HAS NO CONCERNS AT THIS TIME AND DENIES PAIN WHILE RESTING. CALL LIGHT IN REACH.
--- NOTE | 2024-04-17 19:15 | NUR ---
REPORT RECEIVED FROM CARTER/SIXTO PEREZ RN'S. PT AWAKE, REQUESTED AND RECEIVED FRESH WATER WITH NO ICE. NEW BAG FLUIDS INFUSING PER CJ. PT WITH NO NEEDS AT THIS TIME.
--- NOTE | 2024-04-17 22:48 | NUR ---
ROUNDED ON PT. EYES CLOSED, RESP EVEN, AND UNLABORED. IV INFUSING WNL.
[2024-04-18] VITALS (9 sets, daily range): BP systolic 115–132; BP diastolic 61–72
--- NOTE | 2024-04-18 00:26 | NUR ---
ROUNDED ON PATIENT, EMPTIED URINAL. PT STATED HE SLEPT MAYBE 15 MIN. NEEDED HIS UNDERWEAR CHANGED, SAYS WHEN THE URGE TO "PEE", HE CAN'T GET THE URINAL QUICK ENOUGH. BED CHANGED, CLEAN GOWN. WHITE BOARD UPDATED.
--- NOTE | 2024-04-18 02:17 | NUR ---
ROUNDED ON PT. EMPTIED URINAL. PT ON BACK, FACE TOWARD DOOR, RESP EVEN AND UNLABORED.
[2024-04-18 05:52] LABS: BASOPHILS 0.7 % (0-2); EOSINOPHILS 0.2 % (0-6); HEMATOCRIT 31.3 % (35.0-50.0); HEMOGLOBIN 10.7 g/dL (12.0-18.0); LYMPHOCYTES 27.4 % (24-44); MCH 30.3 (27-36); MCHC 34.1 g/dl (30-36); MCV 88.8 fl (81-99); MONOCYTES 11.7 % (0-12); PLATELET COUNT 174 K/uL (140-440); RBC 3.53 M/ul (4.3-5.7); RDW 13.9 (10.5-15.0)
--- NOTE | 2024-04-18 06:07 | NUR ---
PT HERE FOR FALL AT HOME RESULTING IN RHABO. A/O, USES CALL LIGHT APPROPRIATELY. USES URINAL, VOIDING ADEQUATE AMOUNTS. WAS INCONT X1 DUE TO NOT GETTING THE URINAL QUICK ENOUGH. INDEPENDENTLY CHANGED HIS UNDERWEAR AND CLEAN SELF. RA, SATS IN THE 90'S. IV IN LAC FLUSHES WELL INFUSING NS AT 200 THIS SHIFT. STATED THAT MOVEMENT OF RIGHT LEG WAS STILL PAINFUL GETTING OUT OF BED, HOWEVER HE STATED IT SEEMED LESS. DENIED PAIN NEEDS THIS SHIFT.
[2024-04-18 06:21] LABS: ANION GAP 12.8 (7-21); BUN/CREATININE RATIO 18.05 (6.0-28.6); CALCIUM 8.4 mg/dL (8.5-10.1); CREATININE, SERUM 0.72 mg/dL (0.70-1.30); MAGNESIUM 1.6 mg/dL (1.8-2.4); POTASSIUM 3.8 mmol/L (3.5-5.1)
--- NOTE | 2024-04-18 06:53 | NUR ---
PT WITH EYES CLOSED, DID STIR SLIGHTLY, EMPTIED URINAL.
--- NOTE | 2024-04-18 07:26 | NUR ---
MORNING REPORT RECIEVED FROM FREE LANCE MODEL RN, PT LAYING IN BED WITH EYES CLOSED CHEST RISE EQUAL BILAT, PT HAS FLUIDS NS @200ML/HR. PT CALL LIGHT IN REACH.
--- NOTE | 2024-04-18 08:42 | NUR ---
Patient assisted to the bathroom where they washed their face, brushed their teeth, and combed their hair. They are sitting up in their chair for breakfast. Urinal was emptied and rinsed out. Bed linens were changed.
[2024-04-18] MEDS ORDERED: MAGNESIUM OXIDE 400 MG TABLET PO ONE (09:00)
--- NOTE | 2024-04-18 09:10 | NUR ---
PT SITTING UP IN CHAIR EATING BREAKFAST, PT REPORTS PAIN AND REQUESTED PRN NORCO (SEE EMAR). PT HAS NO OTHER CONCERNS AT THIS TIME CALL LIGHT IN REACH.
--- NOTE | 2024-04-18 09:19 | NUR ---
PT REQUESTED BREAD STACKER VISIT. INFORMED PRIESTS VIA NOT IN SACRISTRY PER USUAL PRACTICE.
--- NOTE | 2024-04-18 09:30 | NUR ---
In to see Mr. Kerr, and explain IMM letter. Mr. Kerr is in his bedside chair, he is awake/alert and oriented X3, and answers questions appropriately. He denies questions regarding the IMM letter, and states that he does want to return to his current living situation when the doctor discharges him. Mr. Kerr also, when asked about his care, becomes very emotional and states "My care has been wonderful, you are alma delia to have such wonderful staff at this facility." Mr. Kerr denies further questions or patient care needs at this time. He does sign the IMM letter, and a signed copy of the letter is provided to him for his records.
--- NOTE | 2024-04-18 10:50 | NUR ---
PT SITTING IN CHAIR WITH CHAIR ALARM ON, PT KEEPS BENDING ELBOW AND CAUSING PT SIDE OCCLUSION WITH IV PT INSTRUCTED TO TRY AND KEEP ARM STRAIGHT. PT COMPLAINS OF NO PAIN AT THIS TIME CALL LIGHT IN REACH.
--- NOTE | 2024-04-18 11:30 | NUR ---
PT SITTING IN CHAIR WITH FAMILY PRESENT IN ROOM, PT ASKED FOR COFFEE, PT HAS CALL LIGHT IN REACH AND NO OTHER CONCERNS AT THIS TIME.
--- NOTE | 2024-04-18 11:40 | NUR ---
Spoke with pt and his daughters. He states he walked in the [place] with PT and used his cane. He does not believe he needs a cane. We discussed he has had several falls he should use his cane or a walker would be even better. Family will provide a Life alert or similar product. Pt asking about a referral for a neurosurgeon. I will check with staff if this was completed yesterday.
--- NOTE | 2024-04-18 12:24 | NUR ---
NEW BAG OF NS SCANNED. PATIENT IS SITTING UPRIGHT IN BED WITH LUNCH TRAY SET UP. PATIENT STATED NO FURTHER NEEDS AT THIS TIME. CALL LIGHT AND PERSONAL BELONGINGS ARE WITHIN REACH.
[2024-04-18] MEDS ORDERED: LIDOCAINE HCL 4% 1 EACH PATCH TD SCH (13:18)
--- NOTE | 2024-04-18 13:24 | NUR ---
PT SITTING UP IN BED, PT REQUESTED TUMS AND A LIDOCANE PATCH. PT HAS NO OTHER CONCERNS AT THIS TIME CALL LIGHT IN REACH.
[2024-04-18] MEDS ORDERED: oxyBUTYnin chloride 5 MG TAB PO SCH (14:51)
--- NOTE | 2024-04-18 14:55 | NUR ---
IV FLUIDS ARE BEEPING AT THIS TIME. IV RESTARTED. IV SITE IS CLEAN, DRY, AND INTACT. PATIENT GIVEN A FRESH CUP OF COFFEE. TV IS ON. PATIENT STATED NO FURTHER NEEDS AT THIS TIME. CALL LIGHT AND PERSONAL BELONGINGS ARE WITHIN REACH.
--- NOTE | 2024-04-18 15:16 | NUR ---
PT LAYING IN BED WITH HOB ELEVATED, PT DOES NOT COMPLAIN OF ANY PAIN WILL RESTING, PT HAS NO CONCERNS AT THIS TIME CALL LIGHT IN REACH.
--- NOTE | 2024-04-18 15:44 | NUR ---
VERBAL REPORT RECEIVED FROM REGINE MORALES AND REGINE PEREZ.
--- NOTE | 2024-04-18 16:06 | NUR ---
Attempted to call [facility] throughout the day. I was not able to reach any one. Attempted to contact again now, I listened to a voice message stating they are closed due to inclement. I was able to reach Deja, the charge nurse from yesterday. She also could not reach and had the same message later in the day.
--- NOTE | 2024-04-18 16:12 | NUR ---
PT LAYING IN BED AWAKE AND ALERT PT EXPRESSES THAT THEY HAVE NO NEEDS AT THIS TIME CALL LIGHT IN REACH.
--- NOTE | 2024-04-18 16:35 | NUR ---
Called and spoke with [facility]. They stated referral does not need to be sent from the PCP. They will accept from the hospitalist. Fax number [phone], phone number [phone]. She requests all imaging to be sent. They do have a nerosurgeon on staff. Faxed face sheet, ER note, H&P, progress notes, Labs, meds, imaging, PT/OT notes to above fax number. Daughter updated by phone message. Pt updated.
--- NOTE | 2024-04-18 19:27 | NUR ---
RECEIVED REPORT FROM REGINE MCKEON. PT RESTING IN BED, DENIES NEEDS OR CONCERNS. HEAT TURNED UP IN PT ROOM PER REQUEST. CALL LIGHT WITHIN REACH.
--- NOTE | 2024-04-18 20:49 | NUR ---
TOP FORMER OBTAINED VITALS AND I&O. URINAL EMPTIED. PT STATES NO NEEDS AT THIS TIME. CALL LIGHT WITHIN REACH.
[2024-04-18 21:21] LABS: THYROXINE 7.02 ug/dL (4.50-11.70)
--- NOTE | 2024-04-18 21:29 | NUR ---
PT RESTING IN BED COMFORTABLY. REPORTS INT PAIN TO RIGHT THIGH/KNEE, ESPECIALLY WHEN BENDING KNEE. PT ACCEPTED OFFER OF PRN NORCO FOR HS. O X 4. LS COARSE TO UPPER LOBES, DIM TO BASES. MPC NOTED, PT REPORTS YELLOW SPUTUM. HRR. BTA. LBM 04/17. VOIDS WNL, USING URINAL. LAC IV INFUSING NS @ 200MLS/HR. PT HAS MULTIPLE ABRASIONS TO BILAT ELBOWS AND KNEES, SMALL ABRASION TO BRIDGE OF NOSE. PT HAS PINK FOAM TO BILAT ELBOWS FOR PROTECTION. CALL LIGHT IN REACH.
--- NOTE | 2024-04-18 21:54 | NUR ---
CALL LIGHT ANSWERED, pt AWAKE AND STANDING BETWEEN CHAIR AND BED, WANTING ASSISTANCE IN PLUGGING IN PHONE. ASSISTANCE PROVIDED, pt BACK IN BED, EDUCATED TO USE CALL LIGHT BEFORE GETTING OOB, pt VERBALIZED UNDERSTANDING. URINAL EMPTIED, CALL LIGHT IN REACH. PRIMARY RN UPDATED, NO ADDITIONAL NEEDS OR CONCERNS VERBALIZED.
--- NOTE | 2024-04-18 22:48 | NUR ---
PT AWAKE, IV BEEPING. WATCHING TV, DENIES ANY OTHER NEEDS.
--- NOTE | 2024-04-19 00:18 | NUR ---
AWAKE, PT REPORTS DIFFICULTY SLEEPING AT BASELINE. NEW IVF BAG HUNG. DENIES NEEDS.
--- NOTE | 2024-04-19 02:00 | NUR ---
AWAKE, SLEEPING BETWEEN CARE. DENIES NEEDS.
--- NOTE | 2024-04-19 04:44 | NUR ---
SLEEPING SOUNDLY-APPEARS COMFORTABLE.
[2024-04-19 05:12] VITALS: BP 126/62
--- NOTE | 2024-04-19 05:20 | NUR ---
PT AWAKE, NO COMPLAINTS. WANTS TO BE SURE TO SHOWER THIS AM BEFORE D/C. IVF CONTINUES TO LAC IV AT 200MLS/HR. VOIDING VIA URINAL-GOOD UO. CALL LIGHT WITHIN REACH.
[2024-04-19 05:26] LABS: BASOPHILS 0.8 % (0-2); EOSINOPHILS 0.5 % (0-6); HEMATOCRIT 32.2 % (35.0-50.0); HEMOGLOBIN 10.9 g/dL (12.0-18.0); LYMPHOCYTES 33.6 % (24-44); MCH 30.1 (27-36); MCHC 33.9 g/dl (30-36); MCV 88.7 fl (81-99); MONOCYTES 11.5 % (0-12); NEUTROPHILS 53.6 % (39-80); PLATELET COUNT 175 K/uL (140-440); RBC 3.63 M/ul (4.3-5.7); RDW 13.7 (10.5-15.0)
[2024-04-19 05:37] VITALS: BP 126/62
[2024-04-19 05:48] LABS: ANION GAP 15.7 (7-21); BUN/CREATININE RATIO 13.51 (6.0-28.6); CALCIUM 8.5 mg/dL (8.5-10.1); CREATININE, SERUM 0.74 mg/dL (0.70-1.30); MAGNESIUM 1.4 mg/dL (1.8-2.4); POTASSIUM 3.7 mmol/L (3.5-5.1)
--- NOTE | 2024-04-19 07:05 | NUR ---
PT RESTING IN ROOM WITH EYES CLOSED AND RESPIRATIONS EVEN AND UNLABORED. CALL LIGHT WITHIN REACH.
[2024-04-19] MEDS ORDERED: MAGNESIUM SULFATE 2 GM/50 ML BAG IV ONE (09:00)
[2024-04-19] MEDS ORDERED: SPIRONOLACTONE 25 MG TAB PO SCH (09:00)
--- NOTE | 2024-04-19 09:15 | NUR ---
PT ASSESSMENT COMPLETE. PT JUST FINISHED EATING BREAKFAST, TOLERATED WELL. PT DENIES PAIN CURRENTLY, STATES HE ONLY HAS PAIN TO HIS RLE WITH MOVEMENT. CALL LIGHT WITHIN REACH.
[2024-04-19] MEDS ORDERED: LIDOCAINE PAIN1 EACH TD (10:01)
[2024-04-19 10:24] VITALS: BP 136/86
--- NOTE | 2024-04-19 10:45 | NUR ---
PT NOT AVAILABLE FOR VISIT. PROVIDED PRAYER.
--- NOTE | 2024-04-19 10:51 | NUR ---
PATIENT WAS IN BED AT THIS TIME, AND WANTED A SHOWER. DRYWALLER POVIDED ASSISTANCE WITH SHOWERING AND DRESSING. THEN BACK TO HIS CHAIR. CALL LIGHT WITH IN REACH. NOTHING ELSE NEEDED AT THIS TIME.
[2024-04-19 10:52] VITALS: BP 136/86
[2024-04-19 12:05] VITALS: BP 149/68
--- NOTE | 2024-04-19 17:05 | EKG ---
[facility] [address] [facility] [facility] [place] [address] Signed Sinus bradycardia with sinus arrhythmia Inferior infarct (cited on or before 09-JAN-2018) Abnormal ECG When compared with ECG of 30-MAR-2023 18:08, premature ventricular complexes are no longer present Vent. rate has decreased BY 26 BPM T wave inversion less evident in Inferior leads Confirmed by Karina Soares DO ([id number]) on 04/19/2024 5:05:39 PM Electronically Signed By: KARINA SOARES DO 04/19/24 1705 PATIENT NAME: RADHA DEL ANGEL Electrocardiogram DATE OF : 47 PHYSICIAN: KARINA SOARES DO REPORT #: [id number] REPORT IS CONFIDENTIAL AND NOT TO BE RELEASED WITHOUT AUTHORIZATION
== END 2024-04-19 12:06 | disposition home or self-care (01) | DRG 558 ==
LOC: ED 14:32 → MS 19:04
PROVIDERS: Emergency Medicine; ADMIT Student in an Organized Health Care Education/Training Program; ATTEND Student in an Organized Health Care Education/Training Program
DX: M62.82 Rhabdomyolysis (principal); I10 Essential (primary) hypertension; I25.10 Atherosclerotic heart disease of native coronary artery without angina pectoris; E78.5 Hyperlipidemia, unspecified; K21.9 Gastro-esophageal reflux disease without esophagitis; Z91.011 Allergy to milk products; Z87.442 Personal history of urinary calculi; Z87.891 Personal history of nicotine dependence; Z79.82 Long term (current) use of aspirin; Z79.899 Other long term (current) drug therapy
CPT/HCPCS: 36415; 70450; 71045; 72148; 73502; 80048; 80053; 81001; 82550; 82553; 83036; 83735; 84436; 84443; 84484; 84550; 85025; 93005; 93010; 97161; 97165; 97530; 97535; 99285-25; A9270; J1644; J3475; J7030